=== PATIENT | female | born 1955 | race Caucasian/White ===

== ENCOUNTER 2018-12-17 12:13 | Outpatient (REF) | payer OTHER, SELFPAY | END 2018-12-17 12:33 | LOC: NCHCN 12:13 | PROVIDERS: PCP Family Medicine; Visit Provider Family Medicine | DX: E03.9 Hypothyroidism, unspecified (principal) | CPT/HCPCS: 84439; 84443 ==

== ENCOUNTER 2018-12-31 01:46 | Outpatient (CLI) | payer OTHER, SELFPAY ==
--- NOTE | 2018-12-31 15:30 | DI.MAMMO_ITS ---
SYMPTOM/DIAGNOSIS: SCREENING, PREVENTIVE HEALTH CARE, Z00.00 MAMMOGRAMS: Mammograms were interpreted according to the usual protocol including computer analysis with CAD system, tomosynthesis and C view imaging. Comparison is made with exams from [id number] from [facility]. The breasts are composed of heterogeneously dense fibroglandular tissue, breast density, Category C. No suspicious masses or suspicious microcalcifications are seen. There has been no significant change. IMPRESSION: Category 1, negative mammogram. Yearly screening mammography is recommended. [facility] ASSESSMENT OF FINDINGS: Negative. Category 1. Patient will receive a letter notifying them of these results. Bi-RADS category C. The breasts are heterogeneously dense, which may obscure small masses.
== END 2018-12-31 02:06 ==
PROVIDERS: PCP Family Medicine; Visit Provider Family Medicine
DX: Z00.00 Encounter for general adult medical examination without abnormal findings (principal); Z12.31 Encounter for screening mammogram for malignant neoplasm of breast
CPT/HCPCS: 77063; 77067

== ENCOUNTER 2019-09-23 09:00 | Outpatient (REF) | payer OTHER, SELFPAY | END 2019-09-23 09:20 | LOC: NCHCN 09:00 | PROVIDERS: PCP Family Medicine; Visit Provider Family Medicine | DX: R82.998 Other abnormal findings in urine (principal) | CPT/HCPCS: 87086 ==

== ENCOUNTER 2020-01-12 12:50 | Outpatient (REF) | payer MEDICARE, SELFPAY ==
[2020-01-12 19:54] LABS: HGB 14.4 g/dL (12.0-15.5); Mean Corp. HGB Concentration 32.7 g/dL (32.0-36.0); Mean Corpuscular Hemoglobin 28.5 pg (27.0-33.0); Mean Platelet Volume 9.9 fL (8.0-11.0); Platelet Count 402 x1000/uL (130-400); RBC 5.06 m/cumm (4.00-5.20); RBC Distribution Width 14.2 % (11.7-14.6); White Blood Cell Count 4.29 k/cumm (4.4-10.8)
[2020-01-12 20:37] LABS: ALT 24 U/L (14-59); AST 22 U/L (15-37); Alkaline Phosphatase 91 U/L (46-116); Anion Gap 6.9 mmol/L (3-11); BUN 14 mg/dL (7-18); Bilirubin, Total 0.7 mg/dL (0.2-1.0); CO2 28.1 mmol/L (21.0-32.0); CREATININE 1.03 mg/dL (0.55-1.02); Calcium 10.6 mg/dL (8.5-10.1); Calculated LDL 233 mg/dL (<100); Chloride 104 mmol/L (98-107); Cholesterol 314 mg/dL (<200); Estimated GFR 53.78 (mL/min/1.73m2); Glucose 92 mg/dL (74-106); HDL Cholesterol 53 mg/dL (40-60); Potassium 4.8 mmol/L (3.5-5.1); Sodium 139 mmol/L (136-145); TSH (W/Ref FT4) 0.05 uIU/mL (0.36-3.74); Total Protein 7.6 g/dL (6.4-8.2); Triglyceride 143 mg/dL (<150)
== END 2020-01-12 13:10 ==
LOC: NCHCN 12:50
PROVIDERS: PCP Family Medicine; Visit Provider Family Medicine
DX: I10 Essential (primary) hypertension (principal); E03.9 Hypothyroidism, unspecified; L93.0 Discoid lupus erythematosus
CPT/HCPCS: 80053; 80061; 85027; 84439; 84443

== ENCOUNTER 2020-02-02 01:30 | Outpatient (CLI) | payer MEDICARE, SELFPAY ==
--- NOTE | 2020-02-02 10:30 | DI.CT_ITS ---
EXAM: CT CHEST W CLINICAL HISTORY: CHRONIC COUGH,R05, TECHNIQUE: Imaging Protocol: Axial computed tomography images with coronal and sagittal reformatted images were created and reviewed CONTRAST MATERIAL: Intravenous: Omnipaque 350 Contrast volume:70 mL. COMPARISON: CR CHEST 2 VIEWS PA,LAT from 08/31/2011 FINDINGS: Tracheobronchial tree: Patent where visualized. Mediastinum and Heather: No dominant adenopathy or fluid collection. Pulmonary parenchyma: No consolidation is present. No architectural distortion. Two small pulmonary nodules are present. The largest measures 0.4 cm and is in the lateral aspect of the right lower lob e. There is a 3 mm nodule in the lateral aspect of the left lingula. Pleura: No effusion or pneumothorax. Heart: The heart is not dilated. Mild coronary artery calcification. No significant pericardial effu josh. Aorta: No aneurysmal dilatation. Mild atherosclerosis. Upper abdomen: Unremarkable. Lymph nodes: Within normal limits. Bones: Degenerative changes. IMPRESSION: 1. Two pulmonary nodules present. The largest measures 0.4 cm. If the patient is high risk, follow- up examination in 12 months is recommended. 2. No acute pulmonary process. 3. Mild atherosclerosis and coronary artery calcification. RADIATION DOSE DELIVERED: 329.7mGy.cm Total DLP DATA REPOSITORY: All CT scans at this facility are submitted to the National Radiology Data Registry (NRDR) Dose Index Registry (DIR) with the [employer] (ACR). RADIATION OPTIMIZATION: All CT scans at this facility use at least one of these dose optimization te chniques: automated exposure control; mA and/or kV adjustment per patient size (includes targeted exa ms where dose is matched to clinical indication); or iterative reconstruction.
[2020-02-02] MEDS: Omnipaque 350 MG/ML 100 ML BTL IJ (10:35)
[2020-02-02] MEDS: Normal Saline - Diluent 50 ML VIAL IV (10:36)
== END 2020-02-02 01:50 ==
PROVIDERS: PCP Family Medicine; Visit Provider Family Medicine
DX: R05 Cough (principal); R91.8 Other nonspecific abnormal finding of lung field
CPT/HCPCS: 71260; J3490

== ENCOUNTER 2020-03-02 16:37 | Outpatient (REF) | payer MEDICARE, SELFPAY ==
[2020-03-02 19:28] LABS: Anion Gap 9.2 mmol/L (3-11); BUN 11 mg/dL (7-18); CO2 25.8 mmol/L (21.0-32.0); CREATININE 0.75 mg/dL (0.55-1.02); Calcium 9.7 mg/dL (8.5-10.1); Chloride 105 mmol/L (98-107); FREE T4 1.41 ng/dL (0.76-1.46); Glucose 88 mg/dL (74-106); Potassium 4.3 mmol/L (3.5-5.1); Sodium 140 mmol/L (136-145); TSH 0.11 uIU/mL (0.36-3.74)
[2020-03-02 19:42] LABS: Calculated LDL 142 mg/dL (<100); Cholesterol 217 mg/dL (<200); HDL Cholesterol 56 mg/dL (40-60); Triglyceride 95 mg/dL (<150)
== END 2020-03-02 16:57 ==
LOC: NCHCN 16:37
PROVIDERS: PCP Family Medicine; Visit Provider Family Medicine
DX: I10 Essential (primary) hypertension (principal); E03.9 Hypothyroidism, unspecified; E78.5 Hyperlipidemia, unspecified
CPT/HCPCS: 80048; 80061; 84439; 84443

== ENCOUNTER 2020-05-15 14:26 | Emergency (ER) | payer MEDICARE, SELFPAY ==
[2020-05-15] VITALS (15 sets, daily range): BP systolic 143–181; BP diastolic 71–99; PULSE 69–88; RESP 7–21; TEMP 36.7; O2SAT 93–100
--- NOTE | 2020-05-15 14:15 | RT.EKG_ITS ---
APPROVED REPORT Exam: Resting ECG Patient Location: E HR:74 bpm ECG Measurements Heart Rate 74 AXIS AZ 135 P 83 QRSd 75 QRS 7 QT 403 T 28 QTc 448 Conclusion Sinus rhythm...normal P axis, V-rate 60- 99 I have reviewed and interpreted ECG and agree with software generated interpretation.
--- NOTE | 2020-05-15 14:45 | ED.GENADUL_ITS ---
Discharge Plan Disposition Patient Disposition: HOME Condition: Improving Discharge Details Clinical Impression: Vertigo Primary Care Provider: Kacey Farmer V ED Provider: Ya Jefferson Home Meds and New Rx's Prescriptions: New meclizine 12.5 mg tablet 12.5 mg PO TID PRN (Reason: dizziness) Qty: 14 RF: 0 ondansetron 4 mg tablet,disintegrating 4 mg PO TID PRN (Reason: nausea and vomiting) Qty: 6 RF: 0 Continued levothyroxine [Synthroid] 75 MCG tablet 1 tab PO DAILY RF: 0 Discontinued hydroxychloroquine [Plaquenil] 200 MG tablet 1 tab PO DAILY RF: 0 Discharge Instructions Instructions: Vertigo (ED) Additional Instructions: Drink plenty of fluids and get plenty of rest. Take the meclizine as needed and directed for dizziness. Take Zofran as needed directed for nausea and vomiting. Follow-up with your primary care doctor in 1 week. Return to the emergency department with any worsening or new concerning symptoms. Discharge Data Discharge Date/Time-TO BE ENTERED AT DEPARTURE: 05/15/20 17:53 Discharge Physician: Ya Jefferson Medical Decision Making 1435 -- 64-year-old female with a history of lupus and Sjogren's syndrome presents for sudden onset of dizziness, nausea and perioral/right hand/toes tingling that started while hanging decorations at home prior to arrival. She has had 2 more episodes of dizziness and nausea. Denies any complaints of chest pain or shortness of breath. EKG notes a rate of 74, sinus with no acute ST-T wave ischemic changes. BP hypertensive. Remainder vitals within normal limits. Presentation appears most likely consistent with vertigo. She has a history of L3 titanium plate, so MRI contraindicated. Will obtain CTA head and neck, screening labs and give fluids, meclizine, Zofran and IV Tylenol and reassess. 1530 -- CTA head and neck negative. Chest x-ray negative. Labs reviewed. Urinalysis negative. Low TSH at 0.08. Slightly high free T4 at 1.52. Patient states she has similar symptoms of vertigo when her Synthroid needed to be adjusted due to being hyperthyroid. 1615 -- Patient reassessed and she says her dizziness is better but still com plains of some nausea. Will give a dose of Compazine and Benadryl and reassess. 1700 -- patient was able to ambulate to bathroom multiple times and denies any further dizziness and feels good to go home. She appears much more comfortable. We will send with Zofran and meclizine. She is advised to follow-up with her primary care doctor for reevaluation and for management of her Synthroid dosing. Usual and customary return precautions given prior to discharge. Medical Records Medical records reviewed: Yes I reviewed the patient's medical records. Imaging Data Radiologic Study: Radiologist's impression: CT BRAIN NECK CTA CLINICAL HISTORY: dizzy, MORTON, oral paresthesias/R hand/toe tingling. TECHNIQUE: Imaging Protocol: Axial CT angiography was performed with multi- slice acquisition and multi-planar and/or 3D reconstructions. CONTRAST MATERIAL: Intravenous: Omnipaque 350 Contrast volume:85 mL COMPARISON: No exams were available for comparison FINDINGS: CT Head W/O: Ventricles and Extra axial spaces: Normal in size and morphology for the patient's age. Hemorrhage: None. Cerebral parenchyma: Normal. Midline shift: None. Brainstem/Cerebellum: Normal. Calvarium: Normal. Visualized Paranasal sinuses/Mastoids: Clear. Soft Tissues: Unremarkable. CTA Brain W: Internal Carotid Arteries: Petrous: Normal. Cavernous: Atherosclerosis. Significant stenosis or occlusion. Cerebral: Normal. Anterior Cerebral Arteries: Right: No aneurysm, occlusion or significant stenosis. Left: No aneurysm, occlusion or significant stenosis. Middle Cerebral Arteries: Right: No aneurysm, occlusion or significant stenosis. Left: No aneurysm, occlusion or significant stenosis. Posterior cerebral Arteries: Right: No aneurysm, occlusion or significant stenosis. Left: No aneurysm, occlusion or significant stenosis. Vertebral Arteries: Right: No aneurysm, occlusion or significant stenosis. Left: No aneurysm, occlusion or significant stenosis. Basilar Artery: No aneurysm, occlusion or significant stenosis. CTA Neck W: Common Carotid: Right: No aneurysm, occlusion or significant stenosis. Left: No aneurysm, occlusion or significant stenosis. External Carotid: Right: No aneurysm, occlusion or significant stenosis. Left: No aneurysm, occlusion or significant stenosis. Internal Carotid: Right: No aneurysm, occlusion or significant stenosis. Atherosclerosis. Left: No aneurysm, occlusion or significant stenosis. Atherosclerosis. Vertebral Artery: Right: No aneurysm, occlusion or significant stenosis. Left: No aneurysm, occlusion or significant stenosis. Lung Apices: Normal. Bones: Mild degenerative changes in the cervical spine. Soft Tissues: Normal. IMPRESSION: 1. No occlusion or significant stenosis on the CT angiography of the head and neck. 2. Unremarkable noncontrast CT Head. 3. Findings were discussed with the emergency department on the date of the examination. XR CHEST 2V PA LATERAL CLINICAL HISTORY: possible cva, r/o acute disease TECHNIQUE: 2D digital imaging was performed. COMPARISON: No exams were available for comparison FINDINGS: MEDIASTINUM: Normal. HEART: Normal. PULMONARY VASCULATURE: Normal. LUNGS: Clear. PLEURAL SPACE: No pleural effusion or pneumothorax. BONE:Prior lumbar spine surgery. OTHER FINDINGS:Normal. IMPRESSION: No acute pulmonary findings. Lab Data Lab results reviewed: Yes I reviewed the patient's lab results. Labs: Laboratory Tests Range/Units 05/15/20 05/15/20 05/15/20 14:45 14:45 14:45 WBC (4.4-10.8) 10^3/uL 4.69 RBC (3.93-5.22) 10^6/uL 4.92 Hgb (11.2-15.7) g/dL 13.8 Hct (36.0-46.0) % 42.6 MCV (80-95) fL 86.6 MCH (27.0-33.0) pg 28.0 MCHC (32.0-36.0) % 32.4 RDW (11.7-14.6) % 13.2 Plt Count (130-400) 10^3/uL 355 MPV (8.0-11.0) fL 9.3 Immature Gran % 0.2 Neutrophils % 47.6 Lymphocytes % 39.4 Monocytes % 9.8 Eosinophils % 2.6 Basophils % 0.4 Nucleated RBC % % 0 Absolute Neutrophils (1.2-6.7) 10^3/uL 2.23 Absolute Lymphocytes (1.2-3.4) 10^3/uL 1.85 Absolute Monocytes (0.1-0.8) 10^3/uL 0.46 Absolute Eosinophils (0.0-0.7) 10^3/uL 0.12 Absolute Basophils (0.0-0.2) 10^3/uL 0.02 PT (9.3-11.0) sec 10.4 INR (0.9-1.1) 1.0 APTT (21.0-31.4) sec 22.7 Sodium (136-145) mmol/L 138 Potassium (3.5-5.1) mmol/L 3.7 Chloride (98-107) mmol/L 103 Carbon Dioxide (21.0-32.0) mmol/L 27.0 Anion Gap (3-11) mmol/L 8.0 BUN (7-18) mg/dL 21 H Creatinine (0.55-1.02) mg/dL 0.86 Estimated GFR/1.73 m2 (mL/min/1.73m2) >= 60.00 Glucose (74-106) mg/dL 113 H Calcium (8.5-10.1) mg/dL 9.7 Magnesium (1.8-2.4) mg/dL 2.0 Total Bilirubin (0.2-1.0) mg/dL 0.5 AST (15-37) U/L 23 ALT (14-59) U/L 25 Alkaline Phosphatase (46-116) U/L 89 Troponin I (<0.06) ng/mL < 0.05 Total Protein (6.4-8.2) g/dL 7.3 Albumin (3.4-5.0) g/dL 3.7 TSH (0.36-3.74) uIU/mL 0.08 L Free T4 (0.76-1.46) ng/dL 1.52 H Urine Color (Yellow) Urine Clarity (Clear) Urine pH (5-8) Ur Specific [place] (1.005-1.025) Urine Protein (Negative) mg/dL Urine Ketones (Negative) mg/dL Urine Blood (Negative) Urine Nitrite (Negative) Urine Bilirubin (Negative) Urine Urobilinogen (Up TO 0.2) EU/dL Ur Leukocyte Esterase (Negative) Urine Glucose (Negative) mg/dL Range/Units 05/15/20 16:01 WBC (4.4-10.8) 10^3/uL RBC (3.93-5.22) 10^6/uL Hgb (11.2-15.7) g/dL Hct (36.0-46.0) % MCV (80-95) fL MCH (27.0-33.0) pg MCHC (32.0-36.0) % RDW (11.7-14.6) % Plt Count (130-400) 10^3/uL MPV (8.0-11.0) fL Immature Gran % Neutrophils % Lymphocytes % Monocytes % Eosinophils % Basophils % Nucleated RBC % % Absolute Neutrophils (1.2-6.7) 10^3/uL Absolute Lymphocytes (1.2-3.4) 10^3/uL Absolute Monocytes (0.1-0.8) 10^3/uL Absolute Eosinophils (0.0-0.7) 10^3/uL Absolute Basophils (0.0-0.2) 10^3/uL PT (9.3-11.0) sec INR (0.9-1.1) APTT (21.0-31.4) sec Sodium (136-145) mmol/L Potassium (3.5-5.1) mmol/L Chloride (98-107) mmol/L Carbon Dioxide (21.0-32.0) mmol/L Anion Gap (3-11) mmol/L BUN (7-18) mg/dL Creatinine (0.55-1.02) mg/dL Estimated GFR/1.73 m2 (mL/min/1.73m2) Glucose (74-106) mg/dL Calcium (8.5-10.1) mg/dL Magnesium (1.8-2.4) mg/dL Total Bilirubin (0.2-1.0) mg/dL AST (15-37) U/L ALT (14-59) U/L Alkaline Phosphatase (46-116) U/L Troponin I (<0.06) ng/mL Total Protein (6.4-8.2) g/dL Albumin (3.4-5.0) g/dL TSH (0.36-3.74) uIU/mL Free T4 (0.76-1.46) ng/dL Urine Color (Yellow) Yellow Urine Clarity (Clear) Clear Urine pH (5-8) 7.0 Ur Specific [place] (1.005-1.025) 1.015 Urine Protein (Negative) mg/dL Negative Urine Ketones (Negative) mg/dL Negative Urine Blood (Negative) Negative Urine Nitrite (Negative) Negative Urine Bilirubin (Negative) Negative Urine Urobilinogen (Up TO 0.2) EU/dL 0.2 Ur Leukocyte Esterase (Negative) Negative Urine Glucose (Negative) mg/dL Negative ECG Data Attestation: I personally reviewed and interpreted this ECG (s) as follows: Interpretation: rate of 74, sinus. No acute ST elevation or depression. PA 135. QRS 75. QTc 448. HPI General Mode of arrival: wheelchair . Date/Time Provider Initiated Documentation: 05/15/20 14:28 . Limitations to Documentation: no limitations . Information obtained by: patient . HPI Narrative: Patient is a 64-year-old female with a history of lupus and Sjogren's syndrome who presents for sudden onset of dizziness, nausea and perioral and right hand and toes tingling that started while hanging decorations at home prior to arrival. Patient states she was hanging fall decorations at home climbing up and down a step stool when she felt sudden onset of dizziness. She states she describes it as the entire room moving. She states she had to sit down and then symptoms resolved. She states when she was sitting the symptoms returned and felt like the room was moving. She states during the time of these episodes she is also felt tingling and numbness around her lips, her right hand fingertips and her right toes. She denies any sensation of weakness in her extremities. She states when she was being wheeled into the ED the symptoms returned again. She states with opening her eyes or any movement of her head or body reproduces the symptoms. She admits to nausea but denies any vomiting. She denies any chest pain, shortness of breath, neck or back pain that occurs with these episodes. She does admit to a mild 1 out of 10 diffuse headache. She states prior to this she had been feeling well and denies any fever, recent illness, recent travel or recent known sick contacts. She states she has been taking verapamil for her hypertension for the past 3 months and denies any recent change in dosing. Related Data Home Medications Medication Instructions Recorded Confirmed levothyroxine [Synthroid] 1 tab PO DAILY 02/23/17 02/23/17 meclizine 12.5 mg PO TID PRN #14 tab 05/15/20 ondansetron 4 mg PO TID PRN #6 tab 05/15/20 Previous Rx's Medication Instructions Recorded meclizine 12.5 mg PO TID PRN #14 tab 05/15/20 ondansetron 4 mg PO TID PRN #6 tab 05/15/20 Allergies Allergy/AdvReac Type Severity Reaction Status Date / Time Sulfa (Sulfonamide Allergy Severe Anaphylaxsi Unverified 05/15/20 14:37 Antibiotics) s ampicillin AdvReac Unverified 05/15/20 14:37 ceftriaxone AdvReac Unverified 05/15/20 14:37 General Stated Complaint: CVA/TIA JENNY: 3 Review of Systems All systems reviewed & are unremarkable except as noted in HPI and below Constitutional Constitutional: Reports as per HPI, Denies chills and Denies fever(s) Eyes Eyes: Denies blurry vision ENT Ears, Nose, Mouth, and Throat: Reports dizziness, Denies sore throat and Denies throat swelling Cardiovascular Cardiovascular: Denies chest pain and Denies dyspnea Respiratory Respiratory: Denies cough and Denies dyspnea Gastrointestinal Gastrointestinal: Denies abdominal pain, Denies diarrhea and Denies vomiting Genitourinary Genitourinary: Denies hematuria and Denies dysuria Musculoskeletal Musculoskeletal: Denies back pain, Denies numbness and Reports tingling Integumentary/Breasts Skin/Breast: Denies lesions and Denies rash Neurologic Neurologic: Reports dizziness, Denies localized weakness, Denies numbness and Reports tingling Allergic/Immunologic Allergic/Immunologic: Denies throat swelling PENDING SALE TO [facility] Medical History (Updated 05/15/20 @ 17:42 by Ya Jefferson DO) HTN (hypertension) Lupus Sjogrens syndrome Surgical History (Updated 05/15/20 @ 15:30 by Ya Jefferson DO) History of lumbar surgery Social History (Updated 05/15/20 @ 15:30 by Ya Jefferson DO) Smoking/Tobacco Use Status: Never Alcohol Intake: never Drug use: Never Do you feel safe at home: Yes Do you feel safe in your relationship?: Yes Exam Const General: cooperative and healthy appearing Orientation: alert and awake [facility] Head: normal to inspection Ears: hearing grossly normal bilaterally, external ears normal and TM's normal bilaterally General nose exam: external nose normal Face and sinus: normal facial exam Mouth: oral mucosae normal Teeth and gingiva: dentition normal Throat: posterior oropharynx normal Eyes General: appearance normal, both eyes and all related structures Eyelids: eyelids normal Pupils: PERRL EOM: EOM intact bilaterally Neck Neck: normal visual inspection Lymphatic: no lymphadenopathy noted Chest Chest: normal inspection of the chest Resp Effort & Inspection: normal respiratory effort and able to speak in complete sentences Auscultation: clear to auscultation bilaterally Cardio Rate: regular rate Rhythm: regular rhythm GI Inspection: normal to inspection Palpation: soft, not firm, no guarding, no hepatosplenomegaly, no masses and nontender Auscultation: normal bowel sounds Back/Spine/Pelvis Back: no CVA tenderness Skin General skin exam: no rashes or lesions noted Neuro General: patient alert, patient awake, patient oriented x3, moves all extremities and no focal motor deficits Cranial Nerves: CN's II-XI intact bilaterally and nystagmus horizontal fast component to the right Cognition: normal cognition Speech: speech normal Gait: normal gait Motor: muscle tone normal throughout Sensory Exam: no sensory deficits noted Extrem General: normal to inspection, full ROM and capillary refill normal Psych Appearance: grossly normal Mental Status: mental status grossly normal Speech and Movement: speech and movement normal Affect: normal affect Thought Process: normal Course Vital Signs Vital signs: Vital Signs Temperature 98.1 F 05/15/20 14:35 Pulse 88 05/15/20 14:35 Respiratory Rate 16 05/15/20 14:35 Blood Pressure 180/86 H 05/15/20 14:35 Pulse Oximetry 100 05/15/20 14:35 Temperature 98.1 F 05/15/20 14:35 Temperature Source Skin 05/15/20 14:35 Pulse 88 05/15/20 14:35 Respiratory Rate 16 05/15/20 14:35 Blood Pressure 180/86 H 05/15/20 14:35 Blood Pressure Position Sitting 05/15/20 14:35 Pulse Oximetry 100 05/15/20 14:35 Oxygen Delivery Method Room Air 05/15/20 14:35 Oxygen Flow Rate 0 05/15/20 14:35 End Tidal Co2 0 05/15/20 14:35
[2020-05-15 14:55] LABS: Abs Immature Grans 0.01 10^3/uL (0.0-0.06); Absolute Basophil Count 0.02 10^3/uL (0.0-0.2); Absolute Eosinophil Count 0.12 10^3/uL (0.0-0.7); Absolute Lymphocyte Count 1.85 10^3/uL (1.2-3.4); Absolute Monocyte Count 0.46 10^3/uL (0.1-0.8); Absolute Neutrophil Count 2.23 10^3/uL (1.2-6.7); Basophils % 0.4; Eosinophils % 2.6; HCT 42.6 % (36.0-46.0); HGB 13.8 g/dL (11.2-15.7); Immature Grans % 0.2; Lymphocytes % 39.4; MCHC 32.4 % (32.0-36.0); MCV 86.6 fL (80-95); MPV 9.3 fL (8.0-11.0); Monocytes % 9.8; Neutrophils % 47.6; Nucleated RBC 0 %; Platelet Count 355 10^3/uL (130-400); RBC 4.92 10^6/uL (3.93-5.22); RDW 13.2 % (11.7-14.6); RDW-SD 41.2 fL; WBC 4.69 10^3/uL (4.4-10.8)
--- NOTE | 2020-05-15 15:00 | DI.CT_ITS ---
EXAM: CT BRAIN NECK CTA CLINICAL HISTORY: dizzy, MORTON, oral paresthesias/R hand/toe tingling. TECHNIQUE: Imaging Protocol: Axial CT angiography was performed with multi-slice acquisition and mu lti-planar and/or 3D reconstructions. CONTRAST MATERIAL: Intravenous: Omnipaque 350 Contrast volume:85 mL COMPARISON: No exams were available for comparison FINDINGS: CT Head W/O: Ventricles and Extra axial spaces: Normal in size and morphology for the patient's age. Hemorrhage: None. Cerebral parenchyma: Normal. Midline shift: None. Brainstem/Cerebellum: Normal. Calvarium: Normal. Visualized Paranasal sinuses/Mastoids: Clear. Soft Tissues: Unremarkable. CTA Brain W: Internal Carotid Arteries: Petrous: Normal. Cavernous: Atherosclerosis. Significant stenosis or occlusion. Cerebral: Normal. Anterior Cerebral Arteries: Right: No aneurysm, occlusion or significant stenosis. Left: No aneurysm, occlusion or significant stenosis. Middle Cerebral Arteries: Right: No aneurysm, occlusion or significant stenosis. Left: No aneurysm, occlusion or significant stenosis. Posterior cerebral Arteries: Right: No aneurysm, occlusion or significant stenosis. Left: No aneurysm, occlusion or significant stenosis. Vertebral Arteries: Right: No aneurysm, occlusion or significant stenosis. Left: No aneurysm, occlusion or significant stenosis. Basilar Artery: No aneurysm, occlusion or significant stenosis. CTA Neck W: Common Carotid: Right: No aneurysm, occlusion or significant stenosis. Left: No aneurysm, occlusion or significant stenosis. External Carotid: Right: No aneurysm, occlusion or significant stenosis. Left: No aneurysm, occlusion or significant stenosis. Internal Carotid: Right: No aneurysm, occlusion or significant stenosis. Atherosclerosis. Left: No aneurysm, occlusion or significant stenosis. Atherosclerosis. Vertebral Artery: Right: No aneurysm, occlusion or significant stenosis. Left: No aneurysm, occlusion or significant stenosis. Lung Apices: Normal. Bones: Mild degenerative changes in the cervical spine. Soft Tissues: Normal. IMPRESSION: 1. No occlusion or significant stenosis on the CT angiography of the head and neck. 2. Unremarkable noncontrast CT Head. 3. Findings were discussed with the emergency department on the date of the examination. RADIATION DOSE DELIVERED: 1,021.21mGy.cm Total DLP DATA REPOSITORY: All CT scans at this facility are submitted to the National Radiology Data Registry (NRDR) Dose Index Registry (DIR) with the [employer] (ACR). RADIATION OPTIMIZATION: All CT scans at this facility use at least one of these dose optimization te chniques: automated exposure control; mA and/or kV adjustment per patient size (includes targeted exa ms where dose is matched to clinical indication); or iterative reconstruction.
[2020-05-15 15:08] LABS: PTT Activated 22.7 sec (21.0-31.4); Prothrombin Time 10.4 sec (9.3-11.0)
[2020-05-15 15:15] LABS: ALT 25 U/L (14-59); AST 23 U/L (15-37); Albumin 3.7 g/dL (3.4-5.0); Alkaline Phosphatase 89 U/L (46-116); BUN 21 mg/dL (7-18); Bilirubin, Total 0.5 mg/dL (0.2-1.0); CREATININE 0.86 mg/dL (0.55-1.02); Calcium 9.7 mg/dL (8.5-10.1); Chloride 103 mmol/L (98-107); Glucose 113 mg/dL (74-106); Potassium 3.7 mmol/L (3.5-5.1); Sodium 138 mmol/L (136-145); TSH (W/Ref FT4) 0.08 uIU/mL (0.36-3.74); Total Protein 7.3 g/dL (6.4-8.2)
[2020-05-15 15:16] LABS: Troponin I < 0.05 ng/mL (<0.06)
[2020-05-15] MEDS: Omnipaque 350 MG/ML 100 ML BTL 85 ML IJ (15:26)
[2020-05-15] MEDS: Normal Saline Flush 10 ML SYR IVP (15:27)
[2020-05-15] MEDS: Normal Saline - Diluent 50 ML VIAL IV (15:27)
--- NOTE | 2020-05-15 15:28 | DI.RAD_ITS ---
EXAM: XR CHEST 2V PA LATERAL CLINICAL HISTORY: possible cva, r/o acute disease TECHNIQUE: 2D digital imaging was performed. COMPARISON: No exams were available for comparison FINDINGS: MEDIASTINUM: Normal. HEART: Normal. PULMONARY VASCULATURE: Normal. LUNGS: Clear. PLEURAL SPACE: No pleural effusion or pneumothorax. BONE:Prior lumbar spine surgery. OTHER FINDINGS:Normal. IMPRESSION: No acute pulmonary findings. DATA REPOSITORY: RADIATION DOSE DELIVERED:
[2020-05-15] MEDS: Ondansetron 4 MG/2 ML VIAL IVP (15:30)
[2020-05-15] MEDS: Normal Saline 1,000 ML 1000 ML IV (15:30)
[2020-05-15] MEDS: ACETAMINOPHEN 1,000 MG/100 ML BTL 400 MG IVPB (15:30)
[2020-05-15 15:32] LABS: FREE T4 1.52 ng/dL (0.76-1.46)
[2020-05-15] MEDS: Meclizine 25 MG TAB PO ×2 (15:46→17:46)
[2020-05-15 16:22] LABS: Bilirubin Negative (Negative); Blood Negative (Negative); Clarity Clear (Clear); Glucose Negative (Negative); Ketones Negative (Negative); Leukocyte Esterase Negative (Negative); Nitrite Negative (Negative); Specific Gravity 1.015 (1.005-1.025); Urobilinogen 0.2 EU/dL (Up TO 0.2)
[2020-05-15] MEDS: Prochlorperazine 10 MG/2 ML VIAL IVP (16:32)
[2020-05-15] MEDS: diphenhydrAMINE 50 MG/ML VIAL 25 MG IVP (16:32)
[2020-05-15] MEDS: Ondansetron O.D.T. 4 MG TABEF, 3 TABS/BTL PO (17:46)
== END 2020-05-15 17:53 | disposition home or self-care (01) ==
PROVIDERS: Emergency Provider Physician Assistant; PCP Family Medicine
DX: R42 Dizziness and giddiness (principal); R11.0 Nausea; R20.2 Paresthesia of skin; I10 Essential (primary) hypertension
CPT/HCPCS: 36415; 70496; 70498; 80053; 93005; 96361; 96374; 96375; 99285; 71046; 81003; 83735; 84439; 84443; 84484; 85025; 85610; 85730; 93010; J0131; J0780; J1200; J2405; J3490

== ENCOUNTER 2020-07-10 13:58 | Outpatient (REF) | payer MEDICARE, SELFPAY ==
[2020-07-10 19:47] LABS: Calculated LDL 218 mg/dL (<100); Cholesterol 309 mg/dL (<200); HDL Cholesterol 60 mg/dL (40-60); TSH 0.97 uIU/mL (0.36-3.74); Triglyceride 157 mg/dL (<150)
[2020-07-10 20:15] LABS: FREE T4 1.23 ng/dL (0.76-1.46)
== END 2020-07-10 14:18 ==
LOC: NCHCN 13:58
PROVIDERS: PCP Family Medicine; Visit Provider Family Medicine
DX: E78.5 Hyperlipidemia, unspecified (principal); E03.9 Hypothyroidism, unspecified
CPT/HCPCS: 80061; 84439; 84443

== ENCOUNTER 2020-10-30 20:00 | Outpatient (REF) | payer OTHER, SELFPAY ==
[2020-10-30 17:26] LABS: Hemoglobin A1C 5.7 % (<5.7)
== END 2020-10-30 20:01 | disposition home or self-care (01) ==
LOC: NCHCN 20:00
PROVIDERS: PCP Family Medicine; Visit Provider Family Medicine
DX: R73.9 Hyperglycemia, unspecified (principal)
CPT/HCPCS: 80061; 83036; 84443

== ENCOUNTER 2020-11-01 11:45 | Outpatient (REF) | payer OTHER, SELFPAY ==
[2020-11-01 17:11] LABS: Calculated LDL 153 mg/dL (<100); Cholesterol 233 mg/dL (<200); HDL Cholesterol 52 mg/dL (40-60); TSH 2.34 uIU/mL (0.36-3.74); Triglyceride 142 mg/dL (<150)
== END 2020-11-01 11:46 | disposition home or self-care (01) ==
LOC: NCHCN 11:45
PROVIDERS: PCP Family Medicine; Visit Provider Family Medicine
DX: E78.5 Hyperlipidemia, unspecified (principal)
CPT/HCPCS: 80061; 84443

== ENCOUNTER 2021-02-07 12:01 | Outpatient (REF) | payer OTHER, SELFPAY ==
--- NOTE | 2021-02-07 11:30 | PAPFT_PTH ---
PATIENT: Cris Yoon LOC: NCN #:[id number] AGE/SX: 65/F ROOM: RE02/07/[address]: Kacey Farmer V : 1955 BED: DIS: 02/07/2021 SPEC #: [id number] RECD: 02/08/21 13:11 STATUS: LIANNE REHero #: [id number] ROSELINE: 02/07/21 11:[address]: Kacey Farmer V DEPT: [facility] Cytology RECD BY: Fide Gruber Tissues: 1 - CX/ENDOCX FOR PAP SMEARS Procedures: PAP THIN PREP/UVM Screening Comments: [id number]
[2021-02-07 19:25] LABS: Hemoglobin A1C 5.5 % (<5.7)
[2021-02-07 19:32] LABS: Calculated LDL 170 mg/dL (<100); Cholesterol 247 mg/dL (<200); HDL Cholesterol 47 mg/dL (40-60); TSH 1.08 uIU/mL (0.36-3.74); Triglyceride 150 mg/dL (<150)
[2021-02-07 19:56] LABS: FREE T4 1.33 ng/dL (0.76-1.46)
== END 2021-02-07 12:02 | disposition home or self-care (01) ==
LOC: NCHCN 12:01
PROVIDERS: PCP Family Medicine; Visit Provider Family Medicine
DX: E03.9 Hypothyroidism, unspecified (principal); E78.5 Hyperlipidemia, unspecified; Z12.72 Encounter for screening for malignant neoplasm of vagina; R73.09 Other abnormal glucose
CPT/HCPCS: 80061; 88142; 83036; 84439; 84443; 87480; 87510; 87660

== ENCOUNTER 2021-08-08 11:25 | Outpatient (REF) | payer OTHER, SELFPAY ==
[2021-08-08 13:08] LABS: HCT 43.1 % (36.0-46.0)
[2021-08-08 13:52] LABS: Calculated LDL 183 mg/dL (<100); Cholesterol 263 mg/dL (<200); HDL Cholesterol 64 mg/dL (40-60); Triglyceride 80 mg/dL (<150)
[2021-08-08 14:06] LABS: Hemoglobin A1C 5.6 % (<5.7)
[2021-08-08 14:21] LABS: FREE T4 1.14 ng/dL (0.76-1.46)
== END 2021-08-08 11:26 | disposition home or self-care (01) ==
LOC: NCHCN 11:25
PROVIDERS: PCP Family Medicine; Visit Provider Family Medicine
DX: E78.5 Hyperlipidemia, unspecified (principal); E03.9 Hypothyroidism, unspecified; R73.9 Hyperglycemia, unspecified
CPT/HCPCS: 80061; 83036; 84439; 85014; 85018

== ENCOUNTER 2022-02-13 16:26 | Outpatient (REF) | payer MEDICARE, SELFPAY ==
[2022-02-13 16:00] LABS: ALT 25 U/L (14-59); AST 29 U/L (15-37); Albumin 3.7 g/dL (3.4-5.0); Alkaline Phosphatase 114 U/L (46-116); Anion Gap 4.3 mmol/L (3-11); BUN 15 mg/dL (7-18); Bilirubin, Total 0.7 mg/dL (0.2-1.0); CO2 30.7 mmol/L (21.0-32.0); CREATININE 0.8 mg/dL (0.55-1.02); Calcium 10.1 mg/dL (8.5-10.1); Calculated LDL 169 mg/dL (<100); Chloride 105 mmol/L (98-107); Cholesterol 259 mg/dL (<200); Glucose 104 mg/dL (74-106); HDL Cholesterol 68 mg/dL (40-60); Potassium 4.7 mmol/L (3.5-5.1); Sodium 140 mmol/L (136-145); T4 12.6 ug/mL (4.7-13.3); TSH 1.19 uIU/mL (0.36-3.74); Total Protein 7.7 g/dL (6.4-8.2); Triglyceride 110 mg/dL (<150)
[2022-02-13 17:19] LABS: Hemoglobin A1C 5.6 % (<5.7)
== END 2022-02-13 16:27 | disposition home or self-care (01) ==
LOC: NCHCN 16:26
PROVIDERS: PCP Family Medicine; Visit Provider Family Medicine
DX: E03.9 Hypothyroidism, unspecified (principal); I10 Essential (primary) hypertension; E78.5 Hyperlipidemia, unspecified; R73.09 Other abnormal glucose
CPT/HCPCS: 80053; 80061; 83036; 84436; 84443

== ENCOUNTER 2022-03-24 07:56 | Day surgery (SDC) | payer MEDICARE, SELFPAY ==
[2022-03-24] MEDS: Tropicam./Phenyleph. (1/2.5%) 5 ML BTL OS ×3 (08:36→08:48)
[2022-03-24 08:37] VITALS: BP 143/88; PULSE 75; RESP 16; TEMP 36.3; O2SAT 100
--- NOTE | 2022-03-24 09:14 | ANES.PREOP_ITS ---
General Info Date of Service Date Performed: 03/24/22 Height: 4 ft 11.75 in Weight: 57.1 kg Body Mass Index (BMI): 24.7 Surgical Procedure: Operation Date: 03/24/22 10:40 Proposed Procedure Side Surgeon p Cataract Extraction with IOL Implant Left Sergo Lockwood MD Meds Allergies and Home Medications Allergies Allergy/AdvReac Type Severity Reaction Status Date / Time Sulfa (Sulfonamide Allergy Severe Anaphylaxsi Unverified 03/24/22 08:45 Antibiotics) s cephalexin [From Keflex] Allergy Intermediate Skin Rash Unverified 03/24/22 08:45 doxycycline Allergy Intermediate Swelling Verified 03/24/22 08:49 in lips, tingling in face Penicillins Allergy Intermediate Skin Rash Unverified 03/24/22 08:45 duloxetine [From Cymbalta] Allergy Unknown Unknown Unverified 03/24/22 08:45 ampicillin AdvReac Intermediate Skin Rash Unverified 03/24/22 08:49 ceftriaxone AdvReac Intermediate Skin Rash Unverified 03/24/22 08:49 losartan AdvReac Intermediate Neuro/psych Unverified 03/24/22 08:49 issue oxaprozin [From Daypro] AdvReac Mild projectile Unverified 03/24/22 08:49 vomiting Home Medication Medication Instructions Recorded levothyroxine 75 mcg tablet 1 tab PO DAILY 02/23/17 (Synthroid) albuterol sulfate 90 mcg/actuation 2 puff inhalation DIRECTED 03/20/22 aerosol inhaler (ProAir HFA) amlodipine 5 mg tablet 5 mg PO HS 03/20/22 cholecalciferol (vitamin D3) 25 25 mcg PO DAILY 03/20/22 mcg (1,000 unit) capsule (Vitamin D3) chromium picolinate 200 mcg tablet 200 mcg PO DAILY 03/20/22 fluticasone propionate 110 1 puff inhalation BID PRN 03/20/22 mcg/actuation HFA aerosol inhaler (Flovent HFA) omega-3 fatty acids 1 cap PO DAILY 03/20/22 tobramycin 0.3 %-dexamethasone 0.1 1 drp ophthalmic (eye) BID PRN 03/20/22 % eye drops,suspension (TobraDex) vitamin B complex 1 cap PO DAILY 03/20/22 vitamin E 400 unit tablet 400 unit PO DAILY 03/20/22 levothyroxine 88 mcg tablet 88 mcg PO DIRECTED 03/21/22 Current Visit Medications: Current Medications Generic Name Dose Route Start Last Admin Trade Name Freq PRN Reason Stop Dose Admin Acetaminophen 1,000 mg 03/24/22 06:00 Acetaminophen 500 Mg Tab PO Q4H PRN PRN Miscellaneous Medication 0 ml 03/24/22 06:00 Prednisolone 1%, Moxifloxacin 0.5%, Nepafenac 0.1% 5ml Btl OS DIRECTED [facility] Miscellaneous Medication 0 ml 03/24/22 06:00 03/24/22 08:48 Tropicam./Phenyleph. (1/2.5%) 5 Ml Btl OS 1 drp DIRECTED [facility] Administration Tetracaine HCl 0 ml 03/24/22 06:00 Tetracaine 0.5% 4 Ml Btl OS DIRECTED [facility] Medical History Medical History Blood glucose elevated Cough variant asthma HTN (hypertension) Lupus Retinal arterial branch occlusion Right wrist fracture 02/2017 Sjogrens syndrome Medical History Comments:: L3 lumbar surgery, titanium cage; full dentures Surgical History Surgical History (Updated 03/24/22 @ 08:45 by Hemalatha Muñoz) History of lumbar surgery 08/2011 History of stress incontinence procedure using tension free vaginal tape Hx of tubal ligation Hx of vaginal hysterectomy Tobacco Smoking/Tobacco Use Status: Former Tobacco Use Alcohol Alcohol Intake: never Substance Use Substance use: Never Substance use type: does not use Vital Signs and Lab Results Vital Signs Most Recent Vital Signs in EMR: Most Recent Vital Signs Temp Pulse Resp BP Pulse Ox 36.3 C L 75 16 143/88 H 100 03/24/22 08:37 03/24/22 08:37 03/24/22 08:37 03/24/22 08:37 03/24/22 08:37 Lab Results Blood Type / Crossmatch: No Data to Display Complete Blood Count: No Data to Display Complete Metabolic Panel: No Data to Display Liver Function Panel: No Data to Display Coagulation Panel: No Data to Display Cardiac Panel: No Data to Display Arterial Blood Gas: No Data to Display Venous Blood Gas: No Data to Display Pancreas Panel: No Data to Display Thyroid Panel: No Data to Display Infectious Disease: No Data to Display Blood Cultures: No Data to Display Toxicology Panel: No Data to Display Imaging and Studies Imaging and Studies Study information below may be from another EMR and interpreted by another provider. Please see original notes in EMR for more complete details. EKG Summary: DATE/TIME OF SERVICE: 05/15/20 1437 : 1955PERFORMING LOCATION: ER APPROVED REPORT Exam: Resting ECG Patient Location: E HR:74 bpm ECG Measurements Heart Rate 74 AXIS MI 135 P 83 QRSd 75 QRS 7 QT 403 T28 QTc 448 Conclusion Sinus rhythm...normal P axis, V-rate 60- 99 I have reviewed and interpreted ECG and agree with software generated interpretation. Anesthesia Assessment and Plan Anesthesia History Personal History: No History of Anesthesia Complications Family History: No Family History of Anesthesia Complications Exercise Tolerance Exercise Tolerance: Metabolic Equivalents>4 Pertinent Negatives Pertinent Negatives: No Symptoms of GERD Cardiac & Pulmonary Exam Cardiac Exam: Normal S1/S2 Heart Sounds Pulmonary Exam: Clear Bilateral Breath Sounds Implantable Cardiac Device Does patient have a Pacemaker or an ICD?: No Airway Exam Known Difficult Airway: No Mallampati Class: 2 Mouth Opening: Narrow (< 3cm) Thyromental Distance: Greater than 3 cm Neck Range of Motion: Full ROM Neck Circumference: Normal Teeth Condition: Normal Dentition ASA Classification ASA Score: ASA 3 Emergency Case?: No NPO Status NPO Status: NPO Clears >2 hours, Solids >8 hours Anesthesia Plan Resuscitation Status: Full Code Anesthesia Technique: MAC Anesthesia Airway Planned: Natural Airway Monitors Used: Standard Monitors
[2022-03-24 09:25] VITALS: BMI 24.7
[2022-03-24] MEDS: Trypan Blue 0.06% 0.5 ML SYR (09:59)
[2022-03-24] MEDS: Tetracaine 0.5% 4 ML BTL OS (10:01)
[2022-03-24] MEDS: Balanced Salt Soln.-PLUS 500 ML BAG (10:06)
[2022-03-24] MEDS: Duovisc Viscoelastic System EACH 1 EACH (10:07)
[2022-03-24] MEDS: Lidocaine 2% Jelly 6 ML SYR (10:08)
[2022-03-24 10:12] VITALS: BP 164/90; PULSE 82; RESP 16; TEMP 36; O2SAT 99
--- NOTE | 2022-03-24 10:15 | W.PM.DSUDISC ---
Discharge Plan Disposition Patient Disposition: HOME Condition: Good Discharge Details Attending Provider: Sergo Lockwood Primary Care Provider: Kacey Farmer V Home Meds and New Rx's Prescriptions: No Action amlodipine 5 mg Tablet 5 mg PO HS vitamin E 400 unit Tablet 400 unit PO DAILY chromium picolinate 200 mcg Tablet 200 mcg PO DAILY albuterol sulfate [ProAir HFA] 90 mcg/actuation Hfa Aerosol Inhaler 2 puff INHALATION DIRECTED fluticasone propionate [Flovent HFA] 110 mcg/actuation Hfa Aerosol Inhaler 1 puff INHALATION BID PRN vitamin B complex [Super B Complex] Capsule 1 cap PO DAILY tobramycin-dexamethasone [TobraDex] 0.3-0.1 % Drops,Suspension 1 drp ophthalmic (eye) BID PRN cholecalciferol (vitamin D3) [Vitamin D3] 25 mcg (1,000 unit) Capsule 25 mcg PO DAILY Fish Oil Capsule 1 cap PO DAILY levothyroxine 88 mcg Tablet 88 mcg PO DIRECTED levothyroxine [Synthroid] 75 MCG tablet 1 tab PO DAILY Rx Instructions: 75 mcg x5 days and 88mcg x2 days Discharge Instructions Stand Alone Forms: Post-op Topical Cataract, Thang Dorsey (DSU) Discharge Orders Discharge Orders: Discharge Order (Routine); Ordered 03/24/22 Ordered By: Sergo Lockwood DS: Diagnosis Discharge Diagnosis (1) Nuclear sclerotic cataract of left eye: Status: Resolved (2) Posterior subcapsular age-related cataract of left eye: Status: Resolved
--- NOTE | 2022-03-24 10:16 | ROE_ITS ---
Date of service: 03/24/22 Time of Service: 10:17 Operative Note Operative Note DATE OF PROCEDURE: 03/24/22 PRE-OP DIAGNOSIS: Mature white cataract, left eye Absent red reflex, left eye POST-OP DIAGNOSIS: same PROCEDURE: Cataract extraction using phacoemulsification with intraocular lens implant, left eye, using capsular staining with Vision Blue SURGEON: Sergo Lockwood ANESTHESIA TYPE: Local By Surgeon and MAC Refer to Anesthesia Record COMPLICATIONS: None Patient was transported to: same day Patient's condition: stable Implants: Jonathon [employer] Jonathon / [employer] Tecnis [id number] Indications: Progressive decreased vision due to cataract, left eye, with poor red reflex Procedure Description: CATARACT SURGERY OPERATIVE REPORT PREOPERATIVE DIAGNOSIS: 1. Mature white cataract, left eye 2. Poor red reflex secondary to #1 POSTOPERATIVE DIAGNOSIS: Same OPERATION: 1. Cataract extraction using phacoemulsification with posterior chamber intraocular lens implant, left eye. 2. Capsular staining with Vision Blue IOL: IOL [employer]/Model: Jonathon & Jonathon / ARIANA Tecnis [id number] IOL Power: + 25.0 diopters IOL Serial Number: [id number] Optic Diameter: 6.0 mm Haptic/Overall Diameter: 13.0 mm PHACO INFO: Cj [employer] Vision System with OZil and Active Fluidics Cumulative Dispersed Energy (CDE): 13.39 seconds SURGEON: Sergo Lockwood MD, SAEID ANESTHESIA: Monitored A [facility] Care (MAC), with local sub-tenon's anesthetic infiltration COMPLICATIONS: None SPECIMENS: None INDICATIONS FOR PROCEDURE: The patient is a 66-year-old lady with history of diminished visual acuity in her left eye. 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 In September,, she was noted to have significant nuclear and posterior subcapsular cataract. However, today her cataract has now advanced to a mature white cataract. The option of cataract surgery was offered to the patient and she wished to proceed. She understands her postoperative visual acuity will be limited by the presence of her pre-existing maculopathy. PROCEDURE: The correct surgical eye was identified and marked as the left eye and the pupil was dilated in the preoperative area using mydriatics and cycloplegics. The dilated pupil size was 7.0 mm. The patient elected to proceed without oral sedation. The patient was brought to the operating room where cardiopulmonary monitoring was instituted and surgical time-out was performed, confirming the correct operative eye and IOL power. Topical anesthesia was administered and ophthalmic povidone-iodine 5% was instilled into the conjunctival fornices. Lidocaine gel was applied to the cornea and the morales-ocular area was prepped with Betadine 10% solution and draped in the usual sterile fashion for intraocular surgery, including an aperture drape. A Tegaderm transparent film dressing was cut in half and used to cover the lashes and lid margins. Care was taken to sequester the lashes and lid margins under the Tegaderm dressing. A lid speculum was placed between the lids of the operative eye and the Cj [employer] Revalia operating microscope was maneuvered into position. Vijay scissors were then used to make a conjunctival buttonhole approximately 6mm posterior to the limbus in the inferonasal quadrant. Blunt dissection was carried out to expose bare sclera, and a blunt-tipped sub-tenon?s anesthesia cannula was introduced and passed posteriorly along the globe where non- preserved plain lidocaine was injected into posterior sub-Tenon?s space. A sideport knife was used to make a paracentesis port superiorly/superiortemporally. Intraocular phenylephrine/lidocaine was injected int the anterior chamber.. Air was then injected into the anterior chamber, followed by Vision Blue, which was painted over the anterior capsule and then irrigated out using BSS. The anterior chamber was filled with viscoelastic. A keratome knife was used to create a 2-plane near clear corneal tunnel extending approximately 2 mm into clear cornea temporally. A flap was raised on the anterior capsule and capsulorhexis forceps were used to complete a continuous curvilinear capsulorhexis of 5.0 mm. A moderate amount of liquefied cortex obscured adequate visualization of the capsulorrhexis, so additional Viscoat had to be injected intermittently to clear the view. Balanced salt solution was then used to perform cortical cleaving hydrodissection and nuclear hydrodelineation until the lens could be freely rotated within the capsular bag. The lens nucleus was then disassembled and removed within the capsular bag and iris plane using phacoemulsification. Residual cortical material was removed using the 45-degree angled silicone I/A tip with 0.3mm port. The posterior capsule was carefully polished to remove as much residual lens epithelial cells as safely possible. The capsular bag was then inflated and the anterior chamber deepened with viscoelastic. The lens implant described above was inserted into the capsular bag using the ARIANA [place] Injector. A Kuglen hook was used to dial the IOL into position. Residual viscoelastic was then removed first from posterior to the IOL, then from the anterior chamber using the I/A handpiece. The lens implant was noted to center nicely within the capsular bag. The incisions were stromally hydrated, and the anterior chamber was reformed using BSS. Then 0.5cc of moxifloxacin 1.0mg/ml were injected into the capsular bag and anterior chamber. The incisions were checked with a Weck spear and found to be secure. Several drops of ophthalmic povidone-iodine 5% were then applied to the eye followed by two drops of Imprimis combination prednisolone/moxifloxacin/nepafenac solution. The drapes were removed and a clear plastic protective eye shield was placed over the eye. The patient was then returned to Same Day Surgery in stable condition.
--- NOTE | 2022-03-24 10:31 | W.ANESPOSTOP ---
Postoperative Evaluation Date, Time and Location Date Performed: 03/24/22 Time Performed: 10:15 Patient Location: Day Surgery Unit Vital Signs Most Recent Imported Vital Signs: Most Recent Vital Signs Temp Pulse Resp BP Pulse Ox 36 C L 82 16 164/90 H 99 03/24/22 10:12 03/24/22 10:12 03/24/22 10:12 03/24/22 10:12 03/24/22 10:12 Pain Score Most Recent Pain Score: Most Recent Pain Score Pain Level 0 03/24/22 10:12 Assessment Mental Status: Awake (Alert & Oriented to Patient Baseline) Airway and Respiratory Function: Patent airway with normal (patient baseline) respiratory exam Cardiovascular Function: Hemodynamically Stable Hydration Status: Adequately Hydrated Nausea & Vomiting: No Nausea or Vomiting Pain: Pt. Denies Any Pain Peripheral Nerve Block: Patient did not receive a nerve block
== END 2022-03-24 10:37 | disposition home or self-care (01) ==
LOC: SUR 07:56
PROVIDERS: PCP Family Medicine; Visit Provider Ophthalmology
PROC: (CPT 66982; principal; 2022-03-24 10:30)
DX: H25.89 Other age-related cataract (principal); H25.042 Posterior subcapsular polar age-related cataract, left eye; I10 Essential (primary) hypertension; M35.00 Sjogren syndrome, unspecified; R73.9 Hyperglycemia, unspecified
CPT/HCPCS: 66982; V2632

== ENCOUNTER 2022-04-07 09:27 | Day surgery (SDC) | payer MEDICARE, SELFPAY ==
[2022-04-07] MEDS: Tropicam./Phenyleph. (1/2.5%) 5 ML BTL OD ×3 (09:52→10:07)
[2022-04-07 09:53] VITALS: BP 138/78; PULSE 75; RESP 16; TEMP 36.5; O2SAT 99
--- NOTE | 2022-04-07 10:07 | ANES.PREOP_ITS ---
General Info Date of Service Date Performed: 04/07/22 Height: 4 ft 11.75 in Weight: 56.6 kg Body Mass Index (BMI): 24.5 Surgical Procedure: Operation Date: 04/07/22 12:40 Proposed Procedure Side Surgeon p Cataract Extraction with IOL Implant Right Sergo Lockwood MD Meds Allergies and Home Medications Allergies Allergy/AdvReac Type Severity Reaction Status Date / Time Sulfa (Sulfonamide Allergy Severe Anaphylaxsi Unverified 04/07/22 09:44 Antibiotics) s cephalexin [From Keflex] Allergy Intermediate Skin Rash Unverified 04/07/22 09:44 doxycycline Allergy Intermediate Swelling Verified 04/07/22 09:44 in lips, tingling in face Penicillins Allergy Intermediate Skin Rash Unverified 04/07/22 09:44 duloxetine [From Cymbalta] Allergy Unknown Unknown Unverified 04/07/22 09:44 ampicillin AdvReac Intermediate Skin Rash Unverified 04/07/22 09:44 ceftriaxone AdvReac Intermediate Skin Rash Unverified 04/07/22 09:44 losartan AdvReac Intermediate Neuro/psych Unverified 04/07/22 09:44 issue oxaprozin [From Daypro] AdvReac Mild projectile Unverified 04/07/22 09:44 vomiting Home Medication Medication Instructions Recorded levothyroxine 75 mcg tablet 1 tab PO DAILY 02/23/17 (Synthroid) albuterol sulfate 90 mcg/actuation 2 puff inhalation DIRECTED 03/20/22 aerosol inhaler (ProAir HFA) amlodipine 5 mg tablet 5 mg PO HS 03/20/22 cholecalciferol (vitamin D3) 25 25 mcg PO DAILY 03/20/22 mcg (1,000 unit) capsule (Vitamin D3) chromium picolinate 200 mcg tablet 200 mcg PO DAILY 03/20/22 fluticasone propionate 110 1 puff inhalation BID PRN 03/20/22 mcg/actuation HFA aerosol inhaler (Flovent HFA) omega-3 fatty acids 1 cap PO DAILY 03/20/22 tobramycin 0.3 %-dexamethasone 0.1 1 drp ophthalmic (eye) BID PRN 03/20/22 % eye drops,suspension (TobraDex) vitamin B complex 1 cap PO DAILY 03/20/22 vitamin E 400 unit tablet 400 unit PO DAILY 03/20/22 levothyroxine 88 mcg tablet 88 mcg PO DIRECTED 03/21/22 Current Visit Medications: Current Medications Generic Name Dose Route Start Last Admin Trade Name Freq PRN Reason Stop Dose Admin Acetaminophen 1,000 mg 04/07/22 06:00 Acetaminophen 500 Mg Tab PO Q4H PRN PRN Miscellaneous Medication 0 ml 04/07/22 06:00 Prednisolone 1%, Moxifloxacin 0.5%, Nepafenac 0.1% 5ml Btl OD DIRECTED [facility] Miscellaneous Medication 0 ml 04/07/22 06:00 04/07/22 10:00 Tropicam./Phenyleph. (1/2.5%) 5 Ml Btl OD 1 drp DIRECTED [facility] Administration Tetracaine HCl 0 ml 04/07/22 06:00 Tetracaine 0.5% 4 Ml Btl OD DIRECTED [facility]SH Active Problems Active Problems: Problem Status Onset Code Posterior subcapsular age-related cataract, right eye H25.041 Nuclear sclerotic cataract of right eye H25.11 Posterior subcapsular age-related cataract of left eye H25.042 Nuclear sclerotic cataract of left eye H25.12 Medical History Medical History Blood glucose elevated Cough variant asthma HTN (hypertension) Lupus Retinal arterial branch occlusion Right wrist fracture 02/2017 Sjogrens syndrome Medical History Comments:: L3 lumbar surgery, titanium cage; full dentures Surgical History Surgical History History of lumbar surgery 08/2011 History of stress incontinence procedure using tension free vaginal tape Hx of tubal ligation Hx of vaginal hysterectomy Tobacco Smoking/Tobacco Use Status: Former Tobacco Use Alcohol Alcohol Intake: never Substance Use Substance use: Never Substance use type: does not use Vital Signs and Lab Results Vital Signs Most Recent Vital Signs in EMR: Most Recent Vital Signs Temp Pulse Resp BP Pulse Ox 36.5 C 75 16 138/78 99 04/07/22 09:53 04/07/22 09:53 04/07/22 09:53 04/07/22 09:53 04/07/22 09:53 Lab Results Blood Type / Crossmatch: No Data to Display Complete Blood Count: No Data to Display Complete Metabolic Panel: No Data to Display Liver Function Panel: No Data to Display Coagulation Panel: No Data to Display Cardiac Panel: No Data to Display Arterial Blood Gas: No Data to Display Venous Blood Gas: No Data to Display Pancreas Panel: No Data to Display Thyroid Panel: No Data to Display Infectious Disease: No Data to Display Blood Cultures: No Data to Display Toxicology Panel: No Data to Display Imaging and Studies Imaging and Studies Study information below may be from another EMR and interpreted by another provider. Please see original notes in EMR for more complete details. EKG Summary: DATE/TIME OF SERVICE: 05/15/20 1437 : 1955PERFORMING LOCATION: ER APPROVED REPORT Exam: Resting ECG Patient Location: E HR:74 bpm ECG Measurements Heart Rate 74 AXIS DE 135 P 83 QRSd 75 QRS 7 QT 403 T28 QTc 448 Conclusion Sinus rhythm...normal P axis, V-rate 60- 99 I have reviewed and interpreted ECG and agree with software generated interpretation. Anesthesia Assessment and Plan Anesthesia History Personal History: No History of Anesthesia Complications Family History: No Family History of Anesthesia Complications Exercise Tolerance Exercise Tolerance: Metabolic Equivalents>4 Pertinent Negatives Pertinent Negatives: No Symptoms of GERD Cardiac & Pulmonary Exam Cardiac Exam: Normal S1/S2 Heart Sounds Pulmonary Exam: Clear Bilateral Breath Sounds Implantable Cardiac Device Does patient have a Pacemaker or an ICD?: No Airway Exam Known Difficult Airway: No Mallampati Class: 2 Mouth Opening: Narrow (< 3cm) Thyromental Distance: Greater than 3 cm Neck Range of Motion: Full ROM Neck Circumference: Normal Teeth Condition: Normal Dentition ASA Classification ASA Score: ASA 2 Emergency Case?: No NPO Status NPO Status: NPO Clears >2 hours, Solids >8 hours Anesthesia Plan Resuscitation Status: Full Code Anesthesia Technique: MAC Anesthesia Airway Planned: Natural Airway Monitors Used: Standard Monitors
[2022-04-07 10:25] VITALS: BMI 24.5
[2022-04-07] MEDS: Tetracaine 0.5% 4 ML BTL OD (10:35)
[2022-04-07] MEDS: Lidocaine 1% Pres-Free 5 ML VIAL (10:40)
[2022-04-07] MEDS: Balanced Salt Soln.-PLUS 500 ML BAG (10:45)
[2022-04-07] MEDS: Lidocaine 2% Jelly 6 ML SYR (10:45)
[2022-04-07] MEDS: Povidone-Iodine Ophth 30 ML BTL (10:46)
--- NOTE | 2022-04-07 11:00 | W.PM.DSUDISC ---
Discharge Plan Disposition Patient Disposition: HOME Condition: Good Discharge Details Attending Provider: Sergo Lockwood Primary Care Provider: Kacey Farmer V Home Meds and New Rx's Prescriptions: No Action amlodipine 5 mg Tablet 5 mg PO HS vitamin E 400 unit Tablet 400 unit PO DAILY chromium picolinate 200 mcg Tablet 200 mcg PO DAILY albuterol sulfate [ProAir HFA] 90 mcg/actuation Hfa Aerosol Inhaler 2 puff INHALATION DIRECTED fluticasone propionate [Flovent HFA] 110 mcg/actuation Hfa Aerosol Inhaler 1 puff INHALATION BID PRN vitamin B complex [Super B Complex] Capsule 1 cap PO DAILY tobramycin-dexamethasone [TobraDex] 0.3-0.1 % Drops,Suspension 1 drp ophthalmic (eye) BID PRN cholecalciferol (vitamin D3) [Vitamin D3] 25 mcg (1,000 unit) Capsule 25 mcg PO DAILY Fish Oil Capsule 1 cap PO DAILY levothyroxine 88 mcg Tablet 88 mcg PO DIRECTED levothyroxine [Synthroid] 75 MCG tablet 1 tab PO DAILY Rx Instructions: 75 mcg x5 days and 88mcg x2 days Discharge Instructions Stand Alone Forms: Post-op Topical Cataract, Thang Dorsey (DSU) Discharge Orders Discharge Orders: Discharge Order (Routine); Ordered 04/07/22 Ordered By: Sergo Lockwood DS: Diagnosis Discharge Diagnosis (1) Posterior subcapsular age-related cataract, right eye: Status: Resolved (2) Nuclear sclerotic cataract of right eye: Status: Resolved
--- NOTE | 2022-04-07 11:01 | W.PM.OP ---
Date of service: 04/07/22 Time of Service: 11:43 Operative Note Operative Note DATE OF PROCEDURE: 04/07/22 PRE-OP DIAGNOSIS: Nuclear/posterior subcapsular cataract, right eye POST-OP DIAGNOSIS: same PROCEDURE: Cataract extraction using phacoemulsification with intraocular lens implant, right eye SURGEON: Sergo Lockwood ANESTHESIA TYPE: Local By Surgeon and MAC Refer to Anesthesia Record ESTIMATED BLOOD LOSS: 0 PATHOLOGY: none sent COMPLICATIONS: None Patient was transported to: same day Patient's condition: stable Implants: Jonathon & Jonathon/ARIANA Tecnis [id number] Indications: Progressive visual loss due to cataract, right eye Procedure Description: CATARACT SURGERY OPERATIVE REPORT PREOPERATIVE DIAGNOSIS: 1. Nuclear/posterior subcapsular cataract, right eye POSTOPERATIVE DIAGNOSIS: Same OPERATION: 1. Cataract extraction using phacoemulsification with posterior chamber intraocular lens implant, right eye. IOL: IOL Manager Research Development/Model: Jonathon & Jonathon / ARIANA Tecnis [id number] IOL Power: + 26.0 diopters IOL Serial Number: [id number] Optic Diameter: 6.0mm Haptic/Overall Diameter: 13.0mm PHACO INFO: Cj EmbedStoreurion Vision System with OZil and Active Fluidics Cumulative Dispersed Energy (CDE): 5.05 seconds SURGEON: Sergo Lockwood MD, SAEID ANESTHESIA: Monitored Anesthesia Care (MAC), with local sub-tenon's anesthetic infiltration COMPLICATIONS: None SPECIMENS: None INDICATIONS FOR PROCEDURE: The patient is a 66-year-old lady with history of diminished visual acuity in her right eye secondary to the development of nuclear/posterior subcapsular cataract. The option of cataract surgery was offered to the patient and she wished to proceed. She has already undergone cataract surgery in the left eye for a mature white cataract and is doing well postoperatively. She now presents for cataract surgery in the right eye. PROCEDURE: The correct surgical eye was identified and marked as the right eye and the pupil was dilated in the preoperative area using mydriatics and cycloplegics. The dilated pupil size was 7.0 mm. The patient elected to proceed without oral sedation. The patient was brought to the operating room where cardiopulmonary monitoring was instituted and surgical time-out was performed, confirming the correct operative eye and IOL power. Topical anesthesia was administered and ophthalmic povidone-iodine 5% was instilled into the conjunctival fornices. Lidocaine gel was applied to the cornea and the morales-ocular area was prepped with Betadine 10% solution and draped in the usual sterile fashion for intraocular surgery, including an aperture drape. A Tegaderm transparent film dressing was cut in half and used to cover the lashes and lid margins. Care was taken to sequester the lashes and lid margins under the Tegaderm dressing. A lid speculum was placed between the lids of the operative eye and the Cj LuxOR Revalia operating microscope was maneuvered into position. Vijay scissors were then used to make a conjunctival buttonhole approximately 6mm posterior to the limbus in the inferonasal quadrant. Blunt dissection was carried out to expose bare sclera, and a blunt-tipped sub-tenon?s anesthesia cannula was introduced and passed posteriorly along the globe where non-preserved plain lidocaine was injected into posterior sub-Tenon?s space. A sideport knife was used to make a paracentesis port inferotemporally. Intraocular phenylephrine/lidocaine was injected into the anterior chamber. The anterior chamber was filled with viscoelastic. A keratome knife was used to construct a 2-plane near-clear corneal tunnel extending 2.0mm into clear cornea superiortemporally. A flap was raised on the anterior capsule and capsulorhexis forceps were used to complete a continuous curvilinear capsulorhexis of 5.5 mm. Balanced salt solution was then used to perform cortical cleaving hydrodissection and nuclear hydrodelineation until the lens could be freely rotated within the capsular bag. The lens nucleus was then disassembled and removed within the capsular bag and iris plane using phacoemulsification. Residual cortical material was removed using the I/A handpiece. The posterior capsule was carefully polished to remove as much residual lens epithelial cells as safely possible. The capsular bag was then inflated and the anterior chamber deepened with viscoelastic. The lens implant described above was inserted into the capsular bag using the ARIANA [place] Injector. A Kuglen hook was used to dial the IOL into position. Residual viscoelastic was then removed first from posterior to the IOL, then from the anterior chamber using the I/A handpiece. The lens implant was noted to center nicely within the capsular bag. The incisions were stromally hydrated, and the anterior chamber was reformed using BSS. Then 0.5cc of moxifloxacin 1.0mg/ml were injected into the capsular bag and anterior chamber. The incisions were checked with a Weck spear and found to be secure. Several drops of ophthalmic povidone-iodine 5% were then applied to the eye followed by two drops of Imprimis combination prednisolone/moxifloxacin/nepafenac solution. The drapes were removed and a clear plastic protective eye shield was placed over the eye. The patient was then returned to Same Day Surgery in stable condition.
[2022-04-07 11:05] VITALS: BP 146/76; PULSE 82; RESP 18; TEMP 36.5; O2SAT 96
--- NOTE | 2022-04-07 11:10 | W.ANESPOSTOP ---
Postoperative Evaluation Date, Time and Location Date Performed: 04/07/22 Time Performed: 11:10 Patient Location: Day Surgery Unit Vital Signs Most Recent Imported Vital Signs: Most Recent Vital Signs Temp Pulse Resp BP Pulse Ox 36.5 C 82 18 146/76 H 96 04/07/22 11:05 04/07/22 11:05 04/07/22 11:05 04/07/22 11:05 04/07/22 11:05 Pain Score Most Recent Pain Score: Most Recent Pain Score Pain Level 0 04/07/22 11:05 Assessment Mental Status: Awake (Alert & Oriented to Patient Baseline) Airway and Respiratory Function: Patent airway with normal (patient baseline) respiratory exam Cardiovascular Function: Hemodynamically Stable Hydration Status: Adequately Hydrated Nausea & Vomiting: No Nausea or Vomiting Pain: Pt. Denies Any Pain Peripheral Nerve Block: Patient did not receive a nerve block
== END 2022-04-07 11:20 | disposition home or self-care (01) ==
PROVIDERS: PCP Family Medicine; Visit Provider Ophthalmology
PROC: (CPT 66984; principal; 2022-04-07 12:30)
DX: H25.811 Combined forms of age-related cataract, right eye (principal); M35.00 Sjogren syndrome, unspecified; I10 Essential (primary) hypertension
CPT/HCPCS: 66984; V2632

== ENCOUNTER → 2022-06-19 03:17 | Outpatient (CLI) | payer MEDICARE, SELFPAY ==
--- NOTE | 2022-06-19 14:30 | DI.DEXA_ITS ---
Exam(s) XR DEXA BONE DENSITY W/WO BRANDYN EXAM: XR DEXA BONE DENSITY W/WO BRANDYN CLINICAL HISTORY: MENOPAUSAL, Z78.0; PREVENTATIVE HEALTH CARE, Z00.00 TECHNIQUE: COMPARISON: Comparison examination is 07/23/2009. FINDINGS: Lateral Spine Image: Postsurgical changes in the lumbar spine. Left hip: Total T-Score: -1.7. This compares to -0.6 on the prior examination. Total Z-Score: -0.3 T- and Z-scores: Findings are consistent with osteopenia. Left forearm: Total T-Score: -4.1. This compares to -1.4 on the prior examination. Total Z-Score: -2.3 T- and Z-scores: Findings are consistent with osteoporosis. IMPRESSION: Osteoporosis in the left forearm. Osteopenia in the left hip.
--- NOTE | 2022-06-19 15:00 | DI.MAMMO_ITS ---
Exam(s) MAMMO SCREENING EXAM: MAMMO SCREENING CLINICAL HISTORY: SCREENING, Z12.31 TECHNIQUE: Bilateral full field digital CC and MLO mammographic images were obtained with 3D tomosyn thesis and utilizing computer aided detection (CAD). COMPARISON: Available for comparison. FINDINGS: Masses/Architectural Distortion: None seen. Microcalcifications: No suspicious pleomorphic-type are seen. Skin Thickening/Nipple Retraction: None. IMPRESSION: 1. No significant interval change with no specific features of malignancy noted. 2. Unless there is more urgent need, screening mammography is recommended, as per [place] [employer] guidelines. BI-RADS Category 1 - Negative Breast Density - Category C - Heterogeneously dense Breast density category C or D implies that the patient has dense breast tissue. Dense breast tissue is very common and is not abnormal but dense breast tissue can make it harder to find cancer on a ma mmogram. Also, dense breast tissue may increase their breast cancer risk. This information about the result of the mammogram report was provided to the patient to raise their awareness. Use this report when you speak with the patient about their risks for breast cancer, which includes their family hist ory. At that time, you may recommend for more screening tests (Ultrasound or MRI) as they might be us eful based on their risk. A negative radiographic report should not delay biopsy if a dominant or clinically suspicious mass is present. Up to ten percent of cancers are not identified on mammography. A negative report may reinforce clinical impression. Adenosis and dense breasts may obscure an underlying neoplasm. False positive reports average 6 to 10%. Patient will receive a letter notifying them of these results.
== END ==
PROVIDERS: PCP Family Medicine; Visit Provider Family Medicine
DX: Z78.0 Asymptomatic menopausal state (principal); Z12.31 Encounter for screening mammogram for malignant neoplasm of breast; R92.8 Other abnormal and inconclusive findings on diagnostic imaging of breast; Z13.820 Encounter for screening for osteoporosis; M81.0 Age-related osteoporosis without current pathological fracture; M85.88 Other specified disorders of bone density and structure, other site
CPT/HCPCS: 77063; 77067; 77080

== ENCOUNTER 2022-09-09 10:45 | Outpatient (REF) | payer MEDICARE, SELFPAY ==
[2022-09-09 17:13] LABS: ALT 27 U/L (14-59); AST 33 U/L (15-37); Albumin 3.9 g/dL (3.4-5.0); Alkaline Phosphatase 102 U/L (46-116); Anion Gap 7.4 mmol/L (3-11); BUN 23 mg/dL (7-18); Bilirubin, Total 0.5 mg/dL (0.2-1.0); CO2 27.6 mmol/L (21.0-32.0); CREATININE 0.9 mg/dL (0.55-1.02); Calcium 10.2 mg/dL (8.5-10.1); Calculated LDL 185 mg/dL (<100); Chloride 106 mmol/L (98-107); Cholesterol 283 mg/dL (<200); Estimated GFR 70.07 (mL/min/1.73m2); Glucose 107 mg/dL (74-106); HDL Cholesterol 75 mg/dL (40-60); Potassium 4.4 mmol/L (3.5-5.1); Sodium 141 mmol/L (136-145); Total Protein 7.5 g/dL (6.4-8.2); Triglyceride 117 mg/dL (<150)
== END 2022-09-09 10:46 | disposition home or self-care (01) ==
LOC: NCHCN 10:45
PROVIDERS: PCP Family Medicine; Visit Provider Family Medicine
DX: E78.5 Hyperlipidemia, unspecified (principal); I10 Essential (primary) hypertension; E03.9 Hypothyroidism, unspecified; L93.0 Discoid lupus erythematosus
CPT/HCPCS: 80053; 80061; 84439

== ENCOUNTER 2023-01-26 16:03 | Outpatient (REF) | payer MEDICARE, SELFPAY | END 2023-01-26 16:04 | disposition home or self-care (01) | LOC: NCHCN 16:03 | PROVIDERS: PCP Family Medicine; Visit Provider Nurse Practitioner Family | DX: R30.0 Dysuria (principal) | CPT/HCPCS: 87077; 87086; 87186 ==

== ENCOUNTER 2023-02-17 11:10 | Outpatient (REF) | payer MEDICARE, SELFPAY ==
[2023-02-17 20:03] LABS: Hemoglobin A1C 5.6 % (<5.7)
[2023-02-17 20:05] LABS: Anion Gap 7.4 mmol/L (3-11); BUN 13 mg/dL (7-18); CO2 29.6 mmol/L (21.0-32.0); CREATININE 0.9 mg/dL (0.55-1.02); Calcium 9.6 mg/dL (8.5-10.1); Calculated LDL 153 mg/dL (<100); Chloride 106 mmol/L (98-107); Cholesterol 228 mg/dL (<200); Estimated GFR 69.64 (mL/min/1.73m2); Glucose 100 mg/dL (74-106); HDL Cholesterol 59 mg/dL (40-60); Potassium 4.4 mmol/L (3.5-5.1); Sodium 143 mmol/L (136-145); TSH (W/Ref FT4) 1.14 uIU/mL (0.36-3.74); Triglyceride 81 mg/dL (<150)
== END 2023-02-17 11:11 | disposition home or self-care (01) ==
LOC: NCHCN 11:10
PROVIDERS: PCP Family Medicine; Visit Provider Family Medicine
DX: E78.5 Hyperlipidemia, unspecified (principal); I10 Essential (primary) hypertension; E03.9 Hypothyroidism, unspecified
CPT/HCPCS: 80048; 80061; 83036; 84443

== ENCOUNTER 2023-03-12 09:02 | Outpatient (REF) | payer MEDICARE, SELFPAY | END 2023-03-12 09:03 | disposition home or self-care (01) | LOC: NCHCN 09:02 | PROVIDERS: PCP Family Medicine; Visit Provider Family Medicine | DX: N39.0 Urinary tract infection, site not specified (principal) | CPT/HCPCS: 87077; 87086; 87186 ==

== ENCOUNTER 2023-03-27 14:30 | Outpatient (REF) | payer MEDICARE, SELFPAY | END 2023-03-27 14:31 | disposition home or self-care (01) | LOC: NCHCN 14:30 | PROVIDERS: PCP Family Medicine; Visit Provider Family Medicine | DX: N39.0 Urinary tract infection, site not specified (principal) | CPT/HCPCS: 87086 ==

== ENCOUNTER 2023-06-15 16:53 | Outpatient (REF) | payer MEDICARE, SELFPAY ==
[2023-06-15 16:21] LABS: Calculated LDL 184 mg/dL (<100); Cholesterol 275 mg/dL (<200); HDL Cholesterol 66 mg/dL (40-60); Triglyceride 129 mg/dL (<150)
== END 2023-06-15 16:54 | disposition home or self-care (01) ==
LOC: NCHCN 16:53
PROVIDERS: PCP Family Medicine; Visit Provider Family Medicine
DX: Z00.00 Encounter for general adult medical examination without abnormal findings (principal); E03.9 Hypothyroidism, unspecified
CPT/HCPCS: 80061; 84443

== ENCOUNTER 2024-02-26 03:06 | Outpatient (CLI) | payer MEDICARE, SELFPAY ==
[2024-02-26 14:54] LABS: HGB 13.8 g/dL (11.2-15.7); MCH 28.3 pg (27.0-33.0); MCHC 32.1 % (32.0-36.0); MCV 88 fL (80-95); MPV 9.2 fL (8.0-11.0); Platelet Count 285 10^3/uL (130-400); RBC 4.87 10^6/uL (3.93-5.22); RDW 13.3 % (11.7-14.6); RDW-SD 43.6 fL; WBC 7.07 10^3/uL (4.4-10.8)
[2024-02-26 15:40] LABS: TSH (W/Ref FT4) 0.69 uIU/mL (0.36-3.74)
[2024-02-26 15:43] LABS: C-Reactive Protein < 0.50 mg/dL (<or=0.5)
== END 2024-02-26 03:07 | disposition home or self-care (01) ==
PROVIDERS: PCP Family Medicine; Visit Provider Family Medicine
DX: E03.9 Hypothyroidism, unspecified (principal); R53.83 Other fatigue
CPT/HCPCS: 36415; 85027; 84443; 86140

== ENCOUNTER 2024-03-10 09:15 | Outpatient (REF) | payer MEDICARE, SELFPAY ==
[2024-03-10 17:32] LABS: Anion Gap 5.2 mmol/L (3-11); BUN 13 mg/dL (7-18); CO2 32.8 mmol/L (21.0-32.0); CREATININE 0.8 mg/dL (0.55-1.02); Calcium 9.9 mg/dL (8.5-10.1); Calculated LDL 146 mg/dL (<100); Chloride 107 mmol/L (98-107); Cholesterol 225 mg/dL (<200); Estimated GFR 79.71 (mL/min/1.73m2); Glucose 98 mg/dL (74-106); HDL Cholesterol 58 mg/dL (40-60); Potassium 4.9 mmol/L (3.5-5.1); Sodium 145 mmol/L (136-145); Triglyceride 105 mg/dL (<150)
== END 2024-03-10 09:16 | disposition home or self-care (01) ==
LOC: NCHCN 09:15
PROVIDERS: PCP Family Medicine; Visit Provider Family Medicine
DX: I10 Essential (primary) hypertension (principal); E78.5 Hyperlipidemia, unspecified
CPT/HCPCS: 80048; 80061

== ENCOUNTER 2024-03-18 01:51 | Outpatient (CLI) | payer MEDICARE, SELFPAY ==
[2024-03-18 13:19] LABS: Vitamin B12 759 pg/mL (193-986)
[2024-03-22 20:24] LABS: Iodine, S 79 ng/mL (40-92)
== END 2024-03-18 01:52 | disposition home or self-care (01) ==
PROVIDERS: PCP Family Medicine; Visit Provider Family Medicine
DX: Z00.00 Encounter for general adult medical examination without abnormal findings (principal)
CPT/HCPCS: 36415; 82190; 82607

== ENCOUNTER 2024-05-02 01:51 | Outpatient (CLI) | payer MEDICARE, SELFPAY ==
[2024-05-02 16:52] LABS: TSH (W/Ref FT4) 2.28 uIU/mL (0.36-3.74)
== END 2024-05-02 01:52 | disposition home or self-care (01) ==
PROVIDERS: PCP Family Medicine; Visit Provider Family Medicine
DX: E03.9 Hypothyroidism, unspecified (principal)
CPT/HCPCS: 36415; 84443

== ENCOUNTER 2024-07-22 15:03 | Outpatient (REF) | payer MEDICARE, SELFPAY | END 2024-07-22 15:04 | disposition home or self-care (01) | LOC: NCHCN 15:03 | PROVIDERS: PCP Family Medicine; Visit Provider Family Medicine | DX: N39.0 Urinary tract infection, site not specified (principal); R82.89 Other abnormal findings on cytological and histological examination of urine | CPT/HCPCS: 87086 ==

== ENCOUNTER 2024-08-28 18:34 | Emergency (ER) | payer MEDICARE, SELFPAY ==
--- NOTE | 2024-08-28 12:27 | DI.RAD_ITS ---
Exam(s) XR SHOULDER LT COMPLETE 2+V EXAM: XR SHOULDER LT COMPLETE 2+V CLINICAL HISTORY: Left shoulder pain. TECHNIQUE: 2D digital imaging was performed of the right shoulder. Three images were obtained. AP, Grashey and Y views were obtained. COMPARISON: No exams were available for comparison FINDINGS: BONES: There is an acute comminuted fracture involving the proximal left humerus. There is mild comm inution and mild displacement of the fracture component involving the greater tuberosity. There is a lso an oblique lucency seen on the AP view through the proximal metaphysis of the left humerus suspic ious for nondisplaced fracture. No bony destructive lesion is seen. JOINTS: No dislocation present. Degenerative changes are seen at both the acromioclavicular and gleno humeral joints. SOFT TISSUE: Normal. IMPRESSION: Comminuted fracture involving the proximal left humerus as described above. DATA REPOSITORY: RADIATION DOSE DELIVERED:
[2024-08-28 18:47] VITALS: BP 181/81; PULSE 85; RESP 15; TEMP 36.4; O2SAT 98
--- NOTE | 2024-08-28 19:06 | W.ED.GENAD ---
Discharge Plan Disposition Patient Disposition: Home Discharge Details Clinical Impression: Closed fracture of head of right humerus Primary Care Provider: Kacey Farmer V ED Provider: Manuel Thorne Home Meds and New Rx's Prescriptions: Continued amlodipine 5 mg Tablet 5 mg PO HS vitamin E 400 unit Tablet 400 unit PO DAILY chromium picolinate 200 mcg Tablet 200 mcg PO DAILY albuterol sulfate [ProAir HFA] 90 mcg/actuation Hfa Aerosol Inhaler 2 puff INHALATION DIRECTED fluticasone propionate [Flovent HFA] 110 mcg/actuation Hfa Aerosol Inhaler 1 puff INHALATION BID PRN vitamin B complex Capsule 1 cap PO DAILY tobramycin-dexamethasone [TobraDex] 0.3-0.1 % Drops,Suspension 1 drp ophthalmic (eye) BID PRN cholecalciferol (vitamin D3) [Vitamin D3] 25 mcg (1,000 unit) Capsule 25 mcg PO DAILY omega-3 fatty acids Capsule 1 cap PO DAILY levothyroxine 88 mcg Tablet 88 mcg PO DIRECTED levothyroxine [Synthroid] 75 MCG tablet 1 tab PO DAILY Rx Instructions: 50 mcg x5 days and 88mcg x2 days Discharge Instructions Instructions: Upper Arm Fracture ED Additional Instructions: You are seen in the emergency department for your arm pain. You are found to have a fracture of your proximal humerus. Please do not bear weight on your right upper extremity. Please wear the sling. Please return to the emergency department if you develop worsening pain or if you cannot move your right hand. Please follow-up with orthopedic team next week. Referrals: [facility] [Provider Group] HPI General Date/Time Provider Initiated Documentation: 08/28/24 19:00. HPI Narrative: MDM This is an overall very pyter-xgji-szmlgeum well-appearing afebrile and not tachycardic 68-year-old female with left shoulder swelling tenderness concerning for fracture versus dislocation for which she will receive plain films. No head strike no loss of consciousness to suggest benefit from CT head. No preceding dysuria nor frequency to suggest benefit from urinalysis. No chest pain preceding to suggest troponin testing. No syncope to suggest PE. No pain out of proportion to suggest necrotizing soft tissue infection. No abdominal pain to suggest intra-abdominal infection. Will reassess following x-rays. Patient took 1 g of acetaminophen prior to arrival. Will plan on giving 400 mg of ibuprofen. 11:38 PM Patient was found to have left proximal humerus fracture for which she will be nonweightbearing left upper extremity in a sling. I was in touch with Dr. Bell and he will help to arrange close outpatient orthopedic follow-up. Patient and I discussed she should return to the ED if she developed worsening pain or could not move her hands. I offered her oral morphine but she declined as she had had previous poor experience with opiates in the past. Chest x-ray unremarkable. Patient had been ambulating since her injury so I did not feel she required pelvis x-ray. HPI The patient presents for evaluation of left arm pain. She is accompanied by her . She experienced a fall at approximately 5:00 PM while ascending a step ladder to hang an item on her kitchen window, resulting in a loss of balance and subsequent impact with the wooden floor. The most significant discomfort is reported in her left arm, which she is unable to elevate due to pain localized to the posterior aspect of the arm. She reports no respiratory distress, ambulatory difficulties, head trauma, or loss of consciousness. She is not currently on anticoagulant therapy. Prior to the incident, she was asymptomatic with no fever, cough, chest pain, or respiratory issues. Her current respiratory status is stable, and she reports no nausea. She is right-hand dominant and retains the ability to flex her fingers. Additional pain is noted in the posterior aspect of her elbow and shoulder. Exam General: Well-appearing in no acute distress speaking in complete sentences. Head: Normocephalic, atraumatic. Eye: Extraocular eye movements intact. No conjunctival injection. No scleral icterus. Ear, nose, mouth, throat: Grossly normal inspection. Normal voice, handling secretions normally. Neck: Trachea midline. No significant posterior cervical spinal tenderness. Cardiovascular: Well-perfused distal extremities. Regular rate and rhythm. Respiratory: Nonlabored respiration. Clear lungs bilaterally. Gastrointestinal: Nondistended abdomen. Musculoskeletal: Left proximal humerus with marked swelling. No lacerations. Unable to assess range of motion in left shoulder secondary to pain. Patient does have mild elbow tenderness and is unable to range her left elbow. No obvious deformity. No forearm tenderness. No left wrist tenderness. Left hand warm well-perfused. 2+ left radial pulse. Cap refill less than 2 seconds left fingertips. Sensation motor function intact to the left hand across the radial, median, and ulnar nerve distributions. Skin: Normal for age and race, grossly normal temperature and turgor. No acute rash. Neurologic: Alert and appropriate, no apparent acute deficits. GCS 15. Psychiatric: Mood and manner are appropriate. Grooming and personal hygiene are appropriate. Related Data Home Medications ?Medication ?Instructions ?Recorded ?Confirmed levothyroxine 75 mcg tablet 1 tab PO DAILY 02/23/17 08/28/24 (Synthroid) albuterol sulfate 90 mcg/actuation 2 puff inhalation DIRECTED 03/20/22 08/28/24 aerosol inhaler (ProAir HFA) amlodipine 5 mg tablet 5 mg PO HS 03/20/22 08/28/24 cholecalciferol (vitamin D3) 25 25 mcg PO DAILY 03/20/22 08/28/24 mcg (1,000 unit) capsule (Vitamin D3) chromium picolinate 200 mcg tablet 200 mcg PO DAILY 03/20/22 08/28/24 fluticasone propionate 110 1 puff inhalation BID PRN 03/20/22 08/28/24 mcg/actuation HFA aerosol inhaler (Flovent HFA) omega-3 fatty acids 1 cap PO DAILY 03/20/22 08/28/24 tobramycin 0.3 %-dexamethasone 0.1 1 drp ophthalmic (eye) BID PRN 03/20/22 08/28/24 % eye drops,suspension (TobraDex) vitamin B complex 1 cap PO DAILY 03/20/22 08/28/24 vitamin E 400 unit tablet 400 unit PO DAILY 03/20/22 08/28/24 levothyroxine 88 mcg tablet 88 mcg PO DIRECTED 03/21/22 08/28/24 Allergies Allergy/AdvReac Type Severity Reaction Status Date / Time Sulfa (Sulfonamide Allergy Severe Anaphylaxsi Unverified 08/28/24 18:55 Antibiotics) s cephalexin (From Keflex) Allergy Intermediate Skin Rash Unverified 08/28/24 18:55 doxycycline Allergy Intermediate Swelling Verified 08/28/24 18:55 in lips, tingling in face nitrofurantoin (From Allergy Intermediate Skin Rash Verified 08/28/24 18:55 Macrobid) Penicillins Allergy Intermediate Skin Rash Unverified 08/28/24 18:55 duloxetine (From Cymbalta) Allergy Unknown Unknown Unverified 08/28/24 18:55 ampicillin AdvReac Intermediate Skin Rash Unverified 08/28/24 18:55 ceftriaxone AdvReac Intermediate Skin Rash Unverified 08/28/24 18:55 losartan AdvReac Intermediate Neuro/psych Unverified 08/28/24 18:55 issue oxaprozin (From Daypro) AdvReac Mild projectile Unverified 08/28/24 18:55 vomiting General Stated Complaint: Fall/Non TraumaCriteria JENNY: 4 Course Vital Signs Vital signs: Vital Signs Temperature 36.4 C L 08/28/24 18:47 Pulse 85 08/28/24 18:47 Respiratory Rate 15 08/28/24 18:47 Blood Pressure 181/81 H 08/28/24 18:47 Pulse Oximetry 98 08/28/24 18:47 Temperature 36.4 C L 08/28/24 18:47 Pulse 85 08/28/24 18:47 Respiratory Rate 15 08/28/24 18:47 Blood Pressure 181/81 H 08/28/24 18:47 Blood Pressure Position Sitting 08/28/24 18:47 Pulse Oximetry 98 08/28/24 18:47 Oxygen Delivery Method Room Air 08/28/24 18:47 Oxygen Flow Rate 0 08/28/24 18:47 Pain Level 8 08/28/24 19:04 Medical Decision Making Quality:SDOH Health Related Social Needs: No Data to Display PFSH All Active Problems (Updated 08/28/24 @ 21:25 by Manuel Thorne MD) Closed fracture of head of right humerus (Acute) Medical History Blood glucose elevated Cough variant asthma HTN (hypertension) Lupus Retinal arterial branch occlusion Right wrist fracture 02/2017 Sjogrens syndrome Surgical History History of lumbar surgery 08/2011 History of stress incontinence procedure using tension free vaginal tape Hx of tubal ligation Hx of vaginal hysterectomy Social History (Updated 05/15/20 @ 15:30 by Ya Jefferson DO) Smoking/Tobacco Use Status: Former Tobacco Use Quit Date: 08/24/84 Smoking risk assessment performed?: Yes Alcohol Intake: never Drug use: Never Substance use type: does not use Do you feel safe at home: Yes Do you feel safe in your relationship?: Yes
--- NOTE | 2024-08-28 19:15 | DI.RAD_ITS ---
Exam(s) XR ELBOW LT COMPLETE EXAM: XR ELBOW LT COMPLETE CLINICAL HISTORY: Left elbow pain. TECHNIQUE: 2D digital imaging was performed of the left elbow. Three images were obtained. AP, lat eral and oblique views were obtained. COMPARISON: No exams were available for comparison FINDINGS: Examination is limited due to patient positioning. There is suboptimal visualization of the coronoid process and the radial head. BONES: No acute fracture is present. No bony destructive lesion is seen. JOINTS: The elbow is normally aligned. No joint effusion is seen. SOFT TISSUE: Normal. IMPRESSION: Within the limits of the examination, no fractures identified. DATA REPOSITORY: RADIATION DOSE DELIVERED:
--- NOTE | 2024-08-28 19:15 | DI.RAD_ITS ---
Exam(s) XR CHEST 2V PA LATERAL EXAM: XR CHEST 2V PA LATERAL CLINICAL HISTORY: History of falling TECHNIQUE: 2D digital imaging was performed of the chest. Two images were obtained. PA and lateral views were obtained. COMPARISON: CR CHEST 2 VIEWS PA,LAT from 08/31/2011 CR XR CHEST 2V PA LATERAL from 05/15/2020 CR XR DEXA BONE DENSITY W/WO BRANDYN from 06/19/2022 FINDINGS: MEDIASTINUM: Normal. HEART: Normal. PULMONARY VASCULATURE: Normal. LUNGS: Clear. PLEURAL SPACE: No pleural effusion or pneumothorax. BONE:Within normal limits for the patient's age. Spinal rods and screws are again partially seen in the upper lumbar spine. There are marked degenerative changes seen in the left shoulder. Old lumbar compression fracture deformities are seen. There is an osseous density at the lateral aspect of the humeral head. There is also oblique lucency coursing through the proximal metaphysis of the left erik osiris. The findings are suspicious for an acute fracture. OTHER FINDINGS:Normal. IMPRESSION: 1. No acute pulmonary findings. 2. Acute fracture through the proximal left humerus. Please refer to the x-ray of the shoulder for co mplete details. DATA REPOSITORY: RADIATION DOSE DELIVERED:
--- NOTE | 2024-08-28 19:15 | DI.RAD_ITS ---
Exam(s) XR SHOULDER RT COMPLETE 2+V EXAM: XR SHOULDER RT COMPLETE 2+V CLINICAL HISTORY: Right shoulder pain. TECHNIQUE: 2D digital imaging was performed of the right shoulder. Three images were obtained. AP, Grashey and Y views were obtained. COMPARISON: No exams were available for comparison FINDINGS: BONES: There is an acute comminuted fracture involving the proximal left humerus. There is mild comm inution and mild displacement of the fracture component involving the greater tuberosity. There is a lso an oblique lucency seen on the AP view through the proximal metaphysis of the left humerus suspic ious for nondisplaced fracture. No bony destructive lesion is seen. JOINTS: No dislocation present. Degenerative changes are seen at both the acromioclavicular and gleno humeral joints. SOFT TISSUE: Normal. IMPRESSION: Comminuted fracture involving the proximal left humerus as described above. DATA REPOSITORY: RADIATION DOSE DELIVERED:
[2024-08-28] MEDS: Ibuprofen 400 MG TAB PO (19:28)
--- NOTE | 2024-08-28 21:16 | DI.VRAD_ITS ---
PROCEDURE INFORMATION: Exam: XR Chest Exam date and time: 08/28/2024 7:47 PM Age: 68 years old Clinical indication: Other: History of falling TECHNIQUE: Imaging protocol: Radiologic exam of the chest. Views: 2 views. COMPARISON: CR XR CHEST 2V PA LATERAL 05/15/2020 3:25 PM FINDINGS: Lungs: Unremarkable. No consolidation. Pleural spaces: Unremarkable. No pleural effusion. No pneumothorax. Heart/Mediastinum: Unremarkable. No cardiomegaly. Bones/joints: Lumbar fusion postsurgical change noted. There appear to be some dystrophic calcifications at the level of the left humeral head, possible subacute fracture. Clinical correlation requested. IMPRESSION: 1. No evidence for acute abnormality in the chest. 2. Possible left humeral head healing fracture. Dictated and Authenticated by: Janis Levy MD. Ordering:SANJEEV Jackson MD
--- NOTE | 2024-08-28 21:21 | DI.VRAD_ITS ---
PROCEDURE INFORMATION: Exam: XR Left Elbow Exam date and time: 08/28/2024 7:50 PM Age: 68 years old Clinical indication: Other: Elbow pain TECHNIQUE: Imaging protocol: Radiologic exam of the left elbow. Views: 3 or more views. COMPARISON: No relevant prior studies available. FINDINGS: Bones/joints: Bone mineralization appears decreased. Grossly alignment is anatomic. No definite fracture identified although the radial head is poorly characterized. No evidence for effusion. Soft tissues: Normal. Other findings: Positioning is limited. IMPRESSION: Limited exam. No evidence for fracture. Dictated and Authenticated by: Janis Levy MD. Ordering:SANJEEV Jackson MD
--- NOTE | 2024-08-28 21:23 | DI.VRAD_ITS ---
PROCEDURE INFORMATION: Exam: XR Right Shoulder Exam date and time: 08/28/2024 7:48 PM Age: 68 years old Clinical indication: Other: RT shoulder pain, fall TECHNIQUE: Imaging protocol: Radiologic exam of the right shoulder. Views: 2 or more views. COMPARISON: CR XR CHEST 2V PA LATERAL 08/28/2024 7:47 PM FINDINGS: Bones/joints: There is a comminuted humeral head fracture with mild impaction. Chronicity may be acute or possibly subacute. Underlying degenerative changes noted. There may be some heterotopic bone formation. Bone mineralization appears decreased. Soft tissues: Normal. IMPRESSION: Comminuted humeral head fracture. Dictated and Authenticated by: Janis Levy MD. Ordering:SANJEEV Jackson MD
[2024-08-28 21:26] VITALS: BP 193/82; PULSE 79; O2SAT 98
[2024-08-28 22:10] VITALS: BP 169/92; PULSE 97; RESP 18; O2SAT 98
--- NOTE | 2024-09-06 09:24 | NUR.NOTE ---
Patient called asking about the appt with ortho that she was supposed to have. There was no referral done at the time of visit. Referral done on this date. Patient aware. Nursing Note:
== END 2024-08-28 22:11 | disposition home or self-care (01) ==
PROVIDERS: Emergency Provider Emergency Medicine; PCP Family Medicine
DX: S42.291A Other displaced fracture of upper end of right humerus, initial encounter for closed fracture (principal); W11.XXXA Fall on and from ladder, initial encounter
CPT/HCPCS: 99284; 71046; 73030; 73080; 99283

== ENCOUNTER 2024-09-07 16:01 | Outpatient (CLI) | payer MEDICARE, SELFPAY ==
--- NOTE | 2024-09-07 13:00 | DI.RAD_ITS ---
Exam(s) XR SHOULDER LT COMPLETE 2+V EXAM: XR SHOULDER LT COMPLETE 2+V INDICATION: F/U FRACTURE. COMPARISON: CR,XR XR SHOULDER RT COMPLETE 2+V from 08/28/2024 TECHNIQUE: 2D digital imaging was performed. Two views. FINDINGS: Stable alignment of proximal humeral fracture. No new abnormalities. DATA REPOSITORY: RADIATION DOSE DELIVERED:
== END 2024-09-07 16:02 | disposition home or self-care (01) ==
LOC: DIORS 16:01
PROVIDERS: PCP Family Medicine; Referring Provider Family Medicine; Visit Provider Student in an Organized Health Care Education/Training Program
DX: S42.352A Displaced comminuted fracture of shaft of humerus, left arm, initial encounter for closed fracture; W01.0XXA Fall on same level from slipping, tripping and stumbling without subsequent striking against object, initial encounter
CPT/HCPCS: 99213; 73030

== ENCOUNTER 2024-09-13 13:44 | Outpatient (REF) | payer MEDICARE, SELFPAY ==
[2024-09-13 16:53] LABS: Anion Gap 7.9 mmol/L (3-11); BUN 10 mg/dL (7-18); CO2 30.1 mmol/L (21.0-32.0); CREATININE 0.7 mg/dL (0.55-1.02); Calcium 10.2 mg/dL (8.5-10.1); Calculated LDL 108 mg/dL (<100); Chloride 106 mmol/L (98-107); Cholesterol 189 mg/dL (<200); Estimated GFR 93.56 (mL/min/1.73m2); Glucose 97 mg/dL (74-106); HDL Cholesterol 54 mg/dL (40-60); Potassium 4.5 mmol/L (3.5-5.1); Sodium 144 mmol/L (136-145); TSH (W/Ref FT4) 4.36 uIU/mL (0.36-3.74); Triglyceride 138 mg/dL (<150)
[2024-09-13 17:12] LABS: FREE T4 1.05 ng/dL (0.76-1.46)
== END 2024-09-13 13:45 | disposition home or self-care (01) ==
LOC: NCHCN 13:44
PROVIDERS: PCP Family Medicine; Visit Provider Family Medicine
DX: I10 Essential (primary) hypertension (principal)
CPT/HCPCS: 80048; 80061; 84439; 84443

== ENCOUNTER 2024-10-11 15:32 | Outpatient (CLI) | payer MEDICARE, SELFPAY ==
--- NOTE | 2024-10-11 08:30 | DI.RAD_ITS ---
Exam(s) XR SHOULDER LT COMPLETE 2+V EXAM: XR SHOULDER LT COMPLETE 2+V CLINICAL HISTORY: F/U FRACTURE. TECHNIQUE: 2D digital imaging was performed of the left shoulder. Three images were obtained. Gras hey and Y views were obtained. COMPARISON: CR,XR XR SHOULDER LT COMPLETE 2+V from 08/28/2024 CR XR SHOULDER LT COMPLETE 2+V from 09/07/2024 FINDINGS: BONES: There is again seen a comminuted fracture involving the humeral head. There appears to be inv olvement of the greater tuberosity and the surgical neck. Compared to the prior examination there ap pears to be mild increased impaction since the prior examination. There is callus formation about th e fracture suggesting some interval healing. No bony destructive lesion is seen. JOINTS: No dislocation present. The glenohumeral joint is intact. Mild joint space narrowing is pres ent. SOFT TISSUE: Normal. IMPRESSION: There is again seen a comminuted impacted fracture involving the proximal left humerus. There appear s to be an increase in the impaction of the fracture compared to the prior examination. DATA REPOSITORY: RADIATION DOSE DELIVERED:
== END 2024-10-11 15:33 | disposition home or self-care (01) ==
LOC: DIORS 15:32
PROVIDERS: PCP Family Medicine; Referring Provider Family Medicine; Visit Provider Student in an Organized Health Care Education/Training Program
DX: S42.202D Unspecified fracture of upper end of left humerus, subsequent encounter for fracture with routine healing; X58.XXXD Exposure to other specified factors, subsequent encounter
CPT/HCPCS: 99213; 73030

== ENCOUNTER 2024-11-24 01:29 | Outpatient (CLI) | payer MEDICARE, SELFPAY ==
--- NOTE | 2024-11-24 | DI.DEXA_ITS ---
Exam(s) XR DEXA BONE DENSITY W/WO BRANDYN EXAM: XR DEXA BONE DENSITY W/WO BRANDYN CLINICAL HISTORY: Z78.0 Asymptomatic menopausal state TECHNIQUE: COMPARISON: CR XR DEXA BONE DENSITY W/WO BRANDYN from 06/19/2022 FINDINGS: Lateral Spine Image: Postsurgical changes are again seen in the lumbar spine. Left hip: Total T-Score: -2.0. This compares to -1.7 on the prior examination. Total Z-Score: -0.5 T- and Z-scores: Findings are consistent with osteopenia. Left forearm: Total T-Score: -5.3. This compares to -4.1 on the prior examination. Total Z-Score: -3.4 T- and Z-scores: Findings are consistent with osteoporosis. IMPRESSION: Osteoporosis in the left forearm.
--- NOTE | 2024-11-24 14:52 | DI.MAMMO_ITS ---
Exam(s) MAMMO SCREENING EXAM: MAMMO SCREENING CLINICAL HISTORY: Z12.31 Screening TECHNIQUE: Bilateral full field digital CC and MLO mammographic images were obtained with 3D tomosyn thesis and utilizing computer aided detection (CAD). COMPARISON: Available for comparison. FINDINGS: Masses/Architectural Distortion: No suspicious masses or areas of architectural distortion are presen t. Microcalcifications: No suspicious pleomorphic-type are seen. Skin Thickening/Nipple Retraction: None. IMPRESSION: 1. No significant interval change with no specific features of malignancy noted. 2. Unless there is more urgent need, screening mammography is recommended, as per [employer] guidelines. BI-RADS Category 1 - Negative Breast Density - Category C - Heterogeneously dense Breast density category C or D implies that the patient has dense breast tissue. Dense breast tissue is very common and is not abnormal but dense breast tissue can make it harder to find cancer on a ma mmogram. Also, dense breast tissue may increase their breast cancer risk. This information about the result of the mammogram report was provided to the patient to raise their awareness. Use this report when you speak with the patient about their risks for breast cancer, which includes their family hist ory. At that time, you may recommend for more screening tests (Ultrasound or MRI) as they might be us eful based on their risk. A negative radiographic report should not delay biopsy if a dominant or clinically suspicious mass is present. Up to ten percent of cancers are not identified on mammography. A negative report may reinforce clinical impression. Adenosis and dense breasts may obscure an underlying neoplasm. False positive reports average 6 to 10%. Patient will receive a letter notifying them of these results.
== END 2024-11-24 01:49 ==
PROVIDERS: PCP Family Medicine; Visit Provider Family Medicine
DX: Z78.0 Asymptomatic menopausal state (principal); Z12.31 Encounter for screening mammogram for malignant neoplasm of breast; Z13.820 Encounter for screening for osteoporosis; M81.0 Age-related osteoporosis without current pathological fracture
CPT/HCPCS: 77063; 77067; 77080

== ENCOUNTER 2024-11-29 11:24 | Outpatient (CLI) | payer MEDICARE, SELFPAY ==
--- NOTE | 2024-11-29 09:15 | DI.RAD_ITS ---
Exam(s) XR SHOULDER LT COMPLETE 2+V EXAM: XR SHOULDER LT COMPLETE 2+V CLINICAL HISTORY: F/U FRACTURE. TECHNIQUE: 2D digital imaging was performed. Three views. COMPARISON: No exams were available for comparison FINDINGS: BONES: Healing of the previously noted humeral head fracture. No acute fracture is present. No bony destructive lesion is seen. JOINTS: No dislocation present. Narrowing of the glenohumeral joint is again noted. SOFT TISSUE: Normal. IMPRESSION: Continued fracture healing. DATA REPOSITORY: RADIATION DOSE DELIVERED:
== END 2024-11-29 11:25 | disposition home or self-care (01) ==
LOC: DIORS 11:24
PROVIDERS: PCP Family Medicine; Referring Provider Family Medicine; Visit Provider Student in an Organized Health Care Education/Training Program
DX: S42.352D Displaced comminuted fracture of shaft of humerus, left arm, subsequent encounter for fracture with routine healing (principal); X58.XXXD Exposure to other specified factors, subsequent encounter
CPT/HCPCS: 99213; 73030

== ENCOUNTER 2025-03-03 10:00 | Outpatient (CLI) | payer MEDICARE, SELFPAY ==
[2025-03-03 11:49] LABS: C-Reactive Protein < 0.50 mg/dL (<or=0.5)
[2025-03-03 12:23] LABS: Calculated LDL 131 mg/dL (<100); Cholesterol 218 mg/dL (<200); HDL Cholesterol 59 mg/dL (>or=50); Triglyceride 143 mg/dL (<150); Vitamin D 25 Total 56 ng/mL (30-100)
== END 2025-03-03 10:01 | disposition home or self-care (01) ==
LOC: LBO 10:00
PROVIDERS: PCP Family Medicine; Visit Provider Family Medicine
DX: M81.0 Age-related osteoporosis without current pathological fracture (principal); I10 Essential (primary) hypertension; E03.9 Hypothyroidism, unspecified; L93.0 Discoid lupus erythematosus
CPT/HCPCS: 36415; 80061; 82306; 82725; 83090; 84439; 86140